=== PATIENT | male | born 1965 | race Caucasian/White ===

== ENCOUNTER 2016-12-29 10:42 | Emergency (ER) | payer MEDICAID ==
[2016-12-29] MEDS ORDERED: TORAdol 30 mg Injection IV ONE (11:13)
[2016-12-29] MEDS ORDERED: Zofran 4 MG/2 ML VIAL IV ONE (11:13)
[2016-12-29] MEDS ORDERED: Sodium Chloride 0.9% 1000 ML 1,000 ML IV SCH (11:15)
[2016-12-29] MEDS ORDERED: TORAdol 30 mg Injection ONE (11:20)
[2016-12-29] MEDS ORDERED: Sodium Chloride 0.9% 1000 ML 1,000 ML ONE (11:20)
[2016-12-29] MEDS ORDERED: Zofran 4 MG/2 ML VIAL ONE (11:20)
--- NOTE | 2016-12-29 11:22 | ERPHSYRPT ---
- History of Present Illness Time Seen by Provider: 12/29/16 10:56 Historian: patient Exam Limitations: no limitations Patient Subjective Stated Complaint: onset left lower belly pain and left flank pain. hx kidney stones. n/v today. symptoms for one week Triage Nursing Assessment: ambulated to room per self holding left lower back. skin w/d, color normal. states has had vomiting this am. Physician History: onset left flank pain now moved to front; acts like kidney stone he has has in past; last stone was a year ago; now with nausea and vomiting; no hematuria; no fever or chills; no dysuria; normal BM today; pain LUQ but not tender; Timing/Duration: today (worse with N&V), day(s) (3 onset), intermittent Activities at Onset: none Quality: aching, stabbing Abdominal Pain Onset Location: flank (left) Pain Radiation: LUQ Severity of Pain-Max: severe Severity of Pain-Current: severe Modifying Factors: Improves With: nothing Associated Symptoms: back, nausea, vomiting Previous symptoms: same symptoms as today Allergies/Adverse Reactions: No Known Drug Allergies Allergy (Verified 12/29/16 11:07) Home Medications: Hydrocodone/APAP 10/325 mg [[place] 10/325 MG Tablet] 7.5 mg PO Q6H PRN PRN 01/20/15 [History] Hx Tetanus, Diphtheria Vaccination/Date Given: No Hx Influenza Vaccination/Date Given: Yes Hx Pneumococcal Vaccination/Date Given: No - Review of Systems Constitutional: No Symptoms Eyes: No Symptoms Ears, Nose, & Throat: No Symptoms Respiratory: No Cough, No Dyspnea, No Wheezing Cardiac: No Chest Pain, No Palpitations, No Syncope Abdominal/Gastrointestinal: Abdominal Pain, Nausea, Vomiting, No Diarrhea, No Constipation, No Hematemesis, No Hematochezia, No Melena Genitourinary Symptoms: Flank Pain (left), No Dysuria, No Frequency, No Hematuria, No Incontinence, No Testicle Pain Musculoskeletal: No Symptoms Skin: No Symptoms Neurological: No Symptoms Psychological: No Symptoms Endocrine: No Symptoms Hematologic/Lymphatic: No Symptoms Immunological/Allergic: No Symptoms - Past Medical History Pertinent Past Medical History: Yes Neurological History: No Pertinent History ENT History: No Pertinent History Cardiac History: Aneurysm Respiratory History: No Pertinent History Endocrine Medical History: Diabetes Type II Musculoskeletal History: No Pertinent History GI Medical History: No Pertinent History, Pancreatitis History: Other Psycho-Social History: Depression Male Reproductive Disorders: No Pertinent History Other Medical History: AORTIC ANEURYSM. kidney stones - Past Surgical History Past Surgical History: Yes Neuro Surgical History: No Pertinent History Cardiac: Vascular Surgery Respiratory: No Pertinent History Gastrointestinal: No Pertinent History Genitourinary: Other Musculoskeletal: No Pertinent History Male Surgical History: No Pertinent History Other Surgical History: KIDNEY STONES REMOVED, - Social History Smoking Status: Current every day smoker How long have you smoked: 7 Exposure to second hand smoke: Yes Alcohol Use: Socially Drug Use: marijuana Patient Lives Alone: Yes Significant Family History: no pertinent family hx - Nursing Vital Signs Nursing Vital Signs: Initial Vital Signs Temperature 97.5 F Temperature Source Oral Pulse Rate 93 Respiratory Rate 16 Blood Pressure [Right Arm] 139/88 Pain Intensity 9 - Physical Exam General Appearance: severe distress (left flank and abd pain wiht N&V), alert, thin Eye Exam: PERRL/EOMI, eyes nml inspection, No photophobia Ears, Nose, Throat Exam: normal ENT inspection, TMs normal, pharynx normal, moist mucous membranes Neck Exam: normal inspection, non-tender, supple, full range of motion, No JVD Respiratory Exam: normal breath sounds, lungs clear, airway intact, No chest tenderness, No respiratory distress Cardiovascular Exam: regular rate/rhythm, normal heart sounds, normal peripheral pulses, capillary refill <2 sec, No murmur Gastrointestinal/Abdomen Exam: soft, normal bowel sounds, No tenderness, No distention, No mass, No guarding, No pulsatile mass, No rebound, No organomegaly Male Genitalia Exam: normal genitalia, No hernia, No testicular tenderness Rectal Exam: deferred Back Exam: normal inspection, normal range of motion, No CVA tenderness, No vertebral tenderness, No rash Extremity Exam: normal inspection, normal range of motion, No pelvis stable, No hayde's sign Neurologic Exam: alert, oriented x 3, cooperative, product 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 II-XII nml as tested, normal mood/affect, nml cerebellar function, nml station & gait Skin Exam: normal color, warm, dry, No rash SpO2 Interpretation: normal SpO2: 99 Oxygen Delivery: Room Air - Course Nursing assessment & vital signs reviewed: Yes - CT Exams Abdomen/Pelvis CT Interpretation: Tele-radiologist Report, Other (3mm stone left mid ureter withour hydro; also noted stable AA dissection withour change 3.8 cm) Ordered Tests: Active Orders 24 hr Category Date Time Status IV Insertion STAT Care 12/29/16 11:13 Active Strain Urine .as ordered Care 12/29/16 11:13 Active ABDOMEN AND PELVIS W/0 CONTRAS [CT] Stat Exams 12/29/16 11:24 Taken BMP Stat Lab 12/29/16 11:24 Completed CBC W DIFF Stat Lab 12/29/16 11:24 Completed UA W/ MICROSCOPIC Stat Lab 12/29/16 11:24 Completed Medication Summary Generic Name Dose Route Start Last Admin Trade Name Freq PRN Reason Stop Dose Admin Sodium Chloride 1,000 mls @ 100 mls/hr 12/29/16 11:15 12/29/16 11:23 Sodium Chloride 0.9% 1000 Ml IV 01/28/17 11:14 100 mls/hr .Q10H ISABEL Administration Discontinued Medications Generic Name Dose Route Start Last Admin Trade Name Freq PRN Reason Stop Dose Admin Ketorolac Tromethamine 30 mg 12/29/16 11:13 12/29/16 11:23 Toradol 30 Mg Injection IV 12/29/16 11:14 30 mg STAT ONE Administration Ketorolac Tromethamine Confirm 12/29/16 11:20 Toradol 30 Mg Injection Administered 12/29/16 11:21 Dose 30 mg .ROUTE .STK-MED ONE Ondansetron HCl 4 mg 12/29/16 11:13 12/29/16 11:23 Zofran 4 Mg/2 Ml Vial IV 12/29/16 11:14 4 mg STAT ONE Administration Ondansetron HCl Confirm 12/29/16 11:20 Zofran 4 Mg/2 Ml Vial Administered 12/29/16 11:21 Dose 4 mg .ROUTE .STK-MED ONE Lab/Rad Data: Laboratory Result Diagrams 12/29/16 11:24 12/29/16 11:24 Laboratory Results 12/29/16 12/29/16 12/29/16 Range/Units 11:24 11:24 11:24 WBC 8.3 (4.0-10.5) K/mm3 RBC 5.50 (4.1-5.6) M/mm3 Hgb 16.1 (12.5-18.0) gm/dl Hct 47.9 (42-50) % MCV 87.1 (78-100) fl MCH 29.3 (26-32) pg MCHC 33.6 (32-36) g/dl RDW 13.8 (11.5-14.0) % Plt Count 325 (150-450) K/mm3 MPV 10.6 H (6-9.5) fl Gran % 62.7 (36.0-66.0) % Lymphocytes % 24.4 (24.0-44.0) % Monocytes % 7.5 (0.0-12.0) % Eosinophils % 5.0 (0.00-5.0) % Basophils % 0.4 (0.0-0.4) % Basophils # 0.03 (0-0.4) Sodium 137 (136-145) mEq/L Potassium 3.8 (3.5-5.1) mEq/L Chloride 103 (98-107) mEq/L Carbon Dioxide 23.2 (21-32) mEq/L Anion Gap 14.8 (5-15) MEQ/L BUN 15 (9-20) mg/dL Creatinine 1.29 (0.55-1.30) mg/dl Estimated GFR > 60 ML/MIN Glucose 144 H (70-110) MG/DL Calcium 9.6 (8.5-10.1) mg/dL Ur Collection Type VOID Urine Color YELLOW (YELLOW) Urine Appearance CLEAR (CLEAR) Urine pH 6.0 (5-6) Ur Specific [place] 1.015 (1.005-1.025) Urine Protein NEGATIVE (Negative) Urine Glucose (UA) NEGATIVE (NEGATIVE) mg/dL Urine Ketones NEGATIVE (NEGATIVE) Urine Nitrite NEGATIVE (NEGATIVE) Urine Bilirubin NEGATIVE (NEGATIVE) Urine Urobilinogen 0.2 (0-1) mg/dL Urine WBC (Auto) TRACE (NEGATIVE) Urine RBC (Auto) TRACE HEMOLYZED (0-5) Adal/ul Urine Microscopic RBC 0-2 (0-2) /HPF Urine Microscopic WBC 15-25 (0-5) /HPF Ur Epithelial Cells RARE (FEW) /HPF Urine Bacteria FEW (NEGATIVE) /HPF Urine Yeast FEW (NEGATIVE) /HPF Specimen Received 12/29/16 2052 reviewed - Progress Progress: improved (after meds ), re-examined (after CT and meds) Progress Note: 12/29/16 11:23 IV started, labs drawn and pending; UA pending; FAMILY SERVICES ASSISTANT pending, will medicate and recheck 12/29/16 11:36 patient medicated and to CT; CBC wnl; other labs pending; will recheck post CT 12/29/16 12:[address]- pain resolved; N&V resolved; CT results reviewed and small new 3mm stone mid left ureter; no change in AA ; Clinically abdomen non-tender; no pulsatile masses; good femoral pulses as well as distal; abdomen non-tender; labs neg except for blood in urine and infection; will treat and d/c to follow up with lmd; instructions given and treatment plan discussed Counseled pt/family regarding: lab results, diagnosis, need for follow-up, rad results, smoking cessation - Departure Time of Disposition: 12:13 Departure Disposition: Home Clinical Impression: Ureteral calculus, left, Abdominal pain, UTI (lower urinary tract infection), History of aortic dissection Condition: Stable Critical Care Time: No Referrals: FLASH PICKETT MD [Primary Care Provider] - Instructions: Kidney Stones Additional Instructions: clear fluids 12 hours; strain urine; follow up lmd /urologist recheck Follow-up with family doctor as directed. Call for appointment. Return if any problems. If you smoke please stop. Call or follow up with your family doctor for assistance if you need it to stop. Please wear your seatbelt when driving. Have a nice day. Thank you for allowing us to participate in your care today. :o) Dr Willie Pino Prescriptions: Hydrocodone/Ibuprofen [Vicoprofen 200-7.5 mg Tab] 1 each PO Q8HPRN PRN #10 tablet PRN Reason: Pain
[2016-12-29 11:32] LABS: BASOPHIL % 0.4 % (0.0-0.4); Granulocytes % 62.7 % (36.0-66.0); Lymphocytes % 24.4 % (24.0-44.0); Mean Cell Volume 87.1 fl (78-100); Mean Corpuscular Hemoglobin 29.3 pg (26-32); Mean Platelet Volume 10.6 fl (6-9.5); Monocytes % 7.5 % (0.0-12.0); Platelet Count 325 K/mm3 (150-450); Red Cell Distribution Width 13.8 % (11.5-14.0); White Blood Count 8.3 K/mm3 (4.0-10.5)
[2016-12-29 11:45] LABS: ANION GAP 14.8 MEQ/L (5-15); BLOOD UREA NITROGEN 15 mg/dL (9-20); CHLORIDE 103 mEq/L (98-107); Carbon Dioxide 23.2 mEq/L (21-32); Glucose 144 MG/DL (70-110); Potassium 3.8 mEq/L (3.5-5.1); SODIUM 137 mEq/L (136-145)
[2016-12-29 11:52] LABS: Collection Type VOID
[2016-12-29 11:53] LABS: Bacteria FEW /HPF (NEGATIVE); COMPLETE URINE MICROSCOPIC? YES; Epithelial Cells RARE /HPF (FEW); WBC 15-25 /HPF (0-5); Yeast FEW /HPF (NEGATIVE)
--- NOTE | 2016-12-29 12:12 | XRAY ---
Indication: Multiple contiguous axial images obtained through the abdomen and pelvis without contrast using renal stone protocol. Comparison: Contrast exam January 09, 2016. Lung bases again demonstrates minimal bibasilar dependent atelectasis/scarring. Heart is not enlarged. New 3 mm left mid to distal ureteral calculus, approximately S1 level. Proximal left ureter is not abnormally distended. Stable additional left renal calculi and nonobstructing right renal micro-calculi. 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 Maximum aortic diameter again 3.8 cm. No free fluid or evidence for active hemorrhage. Stable tiny right inferior hepatic cyst and splenomegaly today measuring 13.4 cm in greatest axial dimension. Noncontrasted stomach and bowel loops appear nonobstructed with moderate scattered colonic fecal debris. Again minimal sigmoid diverticulosis without diverticulitis. Normal appendix. No free fluid/air. Remaining liver, gallbladder, pancreas, spleen, adrenal glands, kidneys, ureters, and bladder appear unremarkable for noncontrast exam. Osseous structures intact. Impression: 1. New 3 mm left mid to distal ureteral calculus without hydronephrosis or hydroureter. Again additional bilateral renal micro-calculi. 2. 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 3. Again fecal stasis without obstruction. 4. Stable incidental splenomegaly, tiny hepatic cyst, and sigmoid diverticulosis. CTDI 21.29
[2016-12-29 12:15] VITALS: O2SAT 99
[2016-12-29 12:39] VITALS: BP 132/71; PULSE 70
== END 2016-12-29 12:39 | disposition home or self-care (01) ==
LOC: ED 10:42
DX: N20.1 Calculus of ureter (principal); R10.32 Left lower quadrant pain
CPT/HCPCS: 36000; 36415; 74176; 80048; 81000; 85025; 96360; 96361; 96374; 96375; 99284; J1885; J2405

== ENCOUNTER 2017-01-23 07:31 | Observation (INO) | payer OTHER ==
--- NOTE | 2017-01-23 07:47 | ERPHSYRPT ---
- History of Present Illness Time Seen by Provider: 01/23/17 07:38 Historian: patient Exam Limitations: no limitations Physician History: Pt c/o of worsening cough for 2 weeks. Timing/Duration: week(s) (2) Activities at Onset: none Quality: sharpness (hurts to cough) Location: central Chest Pain Radiation: no radiation Severity of Pain-Max: mild Severity of Pain-Current: mild Modifying Factors: Improves With: nothing Associated Symptoms: cough, hurts to breathe Nitro Today/Relief: no nitro taken today Aspirin Treatment Today: no aspirin today Allergies/Adverse Reactions: No Known Drug Allergies Allergy (Verified 01/23/17 11:21) Hx Tetanus, Diphtheria Vaccination/Date Given: No Hx Influenza Vaccination/Date Given: Yes Hx Pneumococcal Vaccination/Date Given: No - Review of Systems Constitutional: No Fever, No Chills Eyes: No Symptoms Ears, Nose, & Throat: No Symptoms Respiratory: Cough Cardiac: No Chest Pain, No Edema, No Syncope Abdominal/Gastrointestinal: No Abdominal Pain, No Nausea, No Vomiting, No Diarrhea Genitourinary Symptoms: No Dysuria Musculoskeletal: No Back Pain, No Neck Pain Skin: No Rash Neurological: No Dizziness, No Focal Weakness, No Sensory Changes Psychological: No Symptoms Endocrine: No Symptoms Hematologic/Lymphatic: No Symptoms Immunological/Allergic: No Symptoms All Other Systems: Reviewed and Negative - Past Medical History Pertinent Past Medical History: Yes Neurological History: No Pertinent History ENT History: No Pertinent History Cardiac History: Aneurysm Respiratory History: No Pertinent History Endocrine Medical History: Diabetes Type II Musculoskeletal History: No Pertinent History GI Medical History: No Pertinent History, Pancreatitis History: Other Psycho-Social History: Depression Male Reproductive Disorders: No Pertinent History Other Medical History: AORTIC ANEURYSM. kidney stones - Past Surgical History Past Surgical History: Yes Neuro Surgical History: No Pertinent History Cardiac: Vascular Surgery Respiratory: No Pertinent History Gastrointestinal: No Pertinent History Genitourinary: Other Musculoskeletal: No Pertinent History Male Surgical History: No Pertinent History Other Surgical History: KIDNEY STONES REMOVED, - Social History Smoking Status: Current every day smoker How long have you smoked: 7 Exposure to second hand smoke: Yes Alcohol Use: Socially Drug Use: marijuana Patient Lives Alone: Yes Significant Family History: no pertinent family hx - Nursing Vital Signs Nursing Vital Signs: Initial Vital Signs Temperature 97.4 F Temperature Source Oral Pulse Rate [Left Radial] 100 Pulse Rate 102 Respiratory Rate 19 Blood Pressure [Left Arm] 168/84 Pain Intensity 5 - Physical Exam General Appearance: no apparent distress, alert Eye Exam: PERRL/EOMI, eyes nml inspection Ears, Nose, Throat Exam: normal ENT inspection, moist mucous membranes Neck Exam: normal inspection, non-tender, supple, full range of motion Respiratory Exam: rhonchi Cardiovascular Exam: regular rate/rhythm, normal heart sounds Gastrointestinal/Abdomen Exam: soft, No tenderness, No mass Rectal Exam: not done Back Exam: normal inspection, No CVA tenderness, No vertebral tenderness Extremity Exam: normal inspection, normal range of motion Neurologic Exam: alert, oriented x 3, cooperative, normal mood/affect, sensation nml, No motor deficits Skin Exam: normal color, warm, dry SpO2 Interpretation: normal - Radiology Exams Chest X-ray Interpretation: Teleradiologist Report, Other (mild interstial congestion per dr Morel.) Ordered Tests: Medication Summary Discontinued Medications Generic Name Dose Route Start Last Admin Trade Name Freq PRN Reason Stop Dose Admin Acetaminophen 650 mg 01/23/17 10:34 01/23/17 10:34 Tylenol 325 Mg PO 01/23/17 10:35 650 mg STAT STA Administration Acetaminophen Confirm 01/23/17 10:33 Tylenol 325 Mg Administered 01/23/17 10:34 Dose 650 mg .ROUTE .STK-MED ONE Acetaminophen 650 mg 01/23/17 11:23 01/23/17 21:34 Tylenol 325 Mg PO 02/22/17 11:22 650 mg Q4H PRN PRN Administration PAIN AND/OR FEVER Albuterol/Ipratropium 3 ml 01/23/17 07:56 01/23/17 08:25 Duoneb 0.5-3 Mg/3 Ml Neb IH 01/23/17 07:57 3 ml STAT ONE Administration Albuterol/Ipratropium Confirm 01/23/17 08:24 Duoneb 0.5-3 Mg/3 Ml Neb Administered 01/23/17 08:25 Dose 3 ml IH .STK-MED ONE Aspirin 324 mg 01/23/17 09:04 01/23/17 09:10 Baby Aspirin 81 Mg Chew PO 01/23/17 09:05 324 mg STAT ONE Administration Aspirin Confirm 01/23/17 09:07 Baby Aspirin 81 Mg Chew Administered 01/23/17 09:08 Dose 324 mg .ROUTE .STK-MED ONE Aspirin 81 mg 01/24/17 10:00 Ecotrin 81 Mg PO 02/23/17 09:59 DAILY ISABEL Enoxaparin Sodium 40 mg 01/24/17 10:00 Enoxaparin Sodium SQ 02/23/17 09:59 DAILY ISABEL Enoxaparin Sodium 40 mg 01/23/17 19:00 01/23/17 18:55 Enoxaparin Sodium SQ 01/23/17 19:01 40 mg 1XONLY ONE Administration Furosemide 40 mg 01/23/17 10:24 01/23/17 10:31 Lasix 40 Mg/4 Ml IV 01/23/17 10:25 40 mg STAT ONE Administration Furosemide Confirm 01/23/17 10:26 Lasix 40 Mg/4 Ml Administered 01/23/17 10:27 Dose 40 mg .ROUTE .STK-MED ONE Furosemide 40 mg 01/23/17 22:00 01/23/17 21:33 Lasix 40 Mg/4 Ml IV 02/22/17 21:59 40 mg Q12HT ISABEL Administration Sodium Chloride 1,000 mls @ 999 mls/hr 01/23/17 09:03 01/23/17 09:10 Sodium Chloride 0.9% 1000 Ml IV 01/23/17 10:03 999 mls/hr .Q1H1M STA Administration Sodium Chloride Confirm 01/23/17 09:07 Sodium Chloride 0.9% 1000 Ml Administered 01/23/17 09:08 Dose 1,000 mls @ ud .ROUTE .STK-MED ONE Ceftriaxone Sodium/Dextrose 1 g in 50 mls @ 100 mls/hr 01/23/17 10:25 10:33 Rocephin 1 Gm-D5w 50 Ml Bag IV 01/23/17 10:54 100 mls/hr STAT ONE Administration Ceftriaxone Sodium/Dextrose Confirm 01/23/17 10:33 Rocephin 1 Gm-D5w 50 Ml Bag Administered 01/23/17 10:34 Dose 1 g in 50 mls @ ud IV .STK-MED ONE Ceftriaxone Sodium/Dextrose 1 g in 50 mls @ 100 mls/hr 01/24/17 10:00 Rocephin 1 Gm-D5w 50 Ml Bag IV 02/23/17 09:59 Q24H10 ISABEL Ibuprofen 600 mg 01/23/17 18:40 01/23/17 18:54 Motrin 600 Mg PO 02/22/17 18:39 600 mg Q8HPRN PRN Administration MODERATE PAIN Ketorolac Tromethamine 30 mg 01/23/17 07:56 01/23/17 08:13 Toradol 30 Mg Injection IV 01/23/17 07:57 30 mg STAT ONE Administration Ketorolac Tromethamine Confirm 01/23/17 08:03 Toradol 30 Mg Injection Administered 01/23/17 08:04 Dose 30 mg .ROUTE .STK-MED ONE Methylprednisolone Sodium Succinate 125 mg 01/23/17 07:56 01/23/17 08:13 Solu-Medrol 125 Mg IV 01/23/17 07:57 125 mg STAT ONE Administration Methylprednisolone Sodium Succinate Confirm 01/23/17 08:04 Solu-Medrol 125 Mg Administered 01/23/17 08:05 Dose 125 mg .ROUTE .STK-MED ONE Metoprolol Tartrate 25 mg 01/23/17 22:00 01/23/17 18:55 Lopressor 25mg Tab PO 02/22/17 21:59 25 mg BID ISABEL Administration Metoprolol Tartrate 50 mg 01/24/17 01:04 01/24/17 01:06 Lopressor 25mg Tab PO 01/24/17 01:05 50 mg STAT ONE Administration Lab/Rad Data: Laboratory Result Diagrams 01/23/17 07:56 01/23/17 09:20 Laboratory Results 01/23/17 01/23/17 01/23/17 Range/Units 11:05 09:20 09:20 WBC (4.0-10.5) K/mm3 RBC (4.1-5.6) M/mm3 Hgb (12.5-18.0) gm/dl Hct (42-50) % MCV (78-100) fl MCH (26-32) pg MCHC (32-36) g/dl RDW (11.5-14.0) % Plt Count (150-450) K/mm3 MPV (6-9.5) fl Gran % (36.0-66.0) % Lymphocytes % (24.0-44.0) % Monocytes % (0.0-12.0) % Eosinophils % (0.00-5.0) % Basophils % (0.0-0.4) % Basophils # (0-0.4) Sodium (136-145) mEq/L Potassium 4.3 (3.5-5.1) mEq/L Chloride (98-107) mEq/L Carbon Dioxide (21-32) mEq/L Anion Gap (5-15) MEQ/L BUN (9-20) mg/dL Creatinine (0.55-1.30) mg/dl Estimated GFR ML/MIN Glucose (70-110) MG/DL Lactic Acid 2.1 H (0.4-2.0) Calcium (8.5-10.1) mg/dL Total Bilirubin (0.2-1.0) mg/dL AST (15-37) U/L ALT (12-78) U/L Alkaline Phosphatase (46-116) U/L Troponin I (0.000-0.056) ng/ml NT-Pro-B Natriuret Pep 91942 H (0-125) pg/ml Serum Total Protein (6.4-8.2) gm/dL Albumin (3.4-5.0) g/dL Influenza Type A Ag (NEGATIVE) Influenza Type B Ag (NEGATIVE) RSV (PCR) (Negative) 01/23/17 01/23/17 01/23/17 Range/Units 08:30 07:56 07:56 WBC (4.0-10.5) K/mm3 RBC (4.1-5.6) M/mm3 Hgb (12.5-18.0) gm/dl Hct (42-50) % MCV (78-100) fl MCH (26-32) pg MCHC (32-36) g/dl RDW (11.5-14.0) % Plt Count (150-450) K/mm3 MPV (6-9.5) fl Gran % (36.0-66.0) % Lymphocytes % (24.0-44.0) % Monocytes % (0.0-12.0) % Eosinophils % (0.00-5.0) % Basophils % (0.0-0.4) % Basophils # (0-0.4) Sodium 139 (136-145) mEq/L Potassium 5.3 H (3.5-5.1) mEq/L Chloride 105 (98-107) mEq/L Carbon Dioxide 24.2 (21-32) mEq/L Anion Gap 15.5 H (5-15) MEQ/L BUN 10 (9-20) mg/dL Creatinine 0.97 (0.55-1.30) mg/dl Estimated GFR > 60 ML/MIN Glucose 93 (70-110) MG/DL Lactic Acid 2.5 H (0.4-2.0) Calcium 8.7 (8.5-10.1) mg/dL Total Bilirubin 0.60 (0.2-1.0) mg/dL AST 124 H (15-37) U/L ALT 135 H (12-78) U/L Alkaline Phosphatase 186 H (46-116) U/L Troponin I 0.061 H* (0.000-0.056) ng/ml NT-Pro-B Natriuret Pep (0-125) pg/ml Serum Total Protein 7.3 (6.4-8.2) gm/dL Albumin 3.2 L (3.4-5.0) g/dL Influenza Type A Ag NEGATIVE (NEGATIVE) Influenza Type B Ag NEGATIVE (NEGATIVE) RSV (PCR) NEGATIVE (Negative) 01/23/17 Range/Units 07:56 WBC 9.7 (4.0-10.5) K/mm3 RBC 5.15 (4.1-5.6) M/mm3 Hgb 15.3 (12.5-18.0) gm/dl Hct 45.4 (42-50) % MCV 88.2 (78-100) fl MCH 29.7 (26-32) pg MCHC 33.7 (32-36) g/dl RDW 13.8 (11.5-14.0) % Plt Count 307 (150-450) K/mm3 MPV 10.8 H (6-9.5) fl Gran % 59.5 (36.0-66.0) % Lymphocytes % 27.9 (24.0-44.0) % Monocytes % 7.1 (0.0-12.0) % Eosinophils % 5.1 H (0.00-5.0) % Basophils % 0.4 (0.0-0.4) % Basophils # 0.04 (0-0.4) Sodium (136-145) mEq/L Potassium (3.5-5.1) mEq/L Chloride (98-107) mEq/L Carbon Dioxide (21-32) mEq/L Anion Gap (5-15) MEQ/L BUN (9-20) mg/dL Creatinine (0.55-1.30) mg/dl Estimated GFR ML/MIN Glucose (70-110) MG/DL Lactic Acid (0.4-2.0) Calcium (8.5-10.1) mg/dL Total Bilirubin (0.2-1.0) mg/dL AST (15-37) U/L ALT (12-78) U/L Alkaline Phosphatase (46-116) U/L Troponin I (0.000-0.056) ng/ml NT-Pro-B Natriuret Pep (0-125) pg/ml Serum Total Protein (6.4-8.2) gm/dL Albumin (3.4-5.0) g/dL Influenza Type A Ag (NEGATIVE) Influenza Type B Ag (NEGATIVE) RSV (PCR) (Negative) - Progress Discussed with Dr.: Corral - Departure Time of Disposition: 07:18 Departure Disposition: Observation Clinical Impression: Congestive heart failure Condition: Stable Critical Care Time: No
--- NOTE | 2017-01-23 07:55 | ERPHSYRPT ---
- History of Present Illness Time Seen by Provider: 01/23/17 07:48 Source: patient Exam Limitations: no limitations Patient Subjective Stated Complaint: PT HAS HAVE CHEST PAIN FOR ABOUT 3 DAYS. PT HAS SOB THAT KEEPS GETTING WORSE. C/O HEADACHE AND COUGH. Triage Nursing Assessment: PT IS ALERT X 3. PT IS SOB AT REST. RESPIRATIONS ARE DEEP AND FAST WITH A RR OF 30 AT THIS TIME. SKIN IS PINK WARM AND DRY. PT IS COUGHING AND WHEN DOING SO PT HOLDS HIS STOMACH AND CHEST AREA. PT IS NOW DANGLING ON THE SIDE OF BED. Physician History: The patient is a 51-year-old male who presents complaining of increasing cough, shortness of breath, and chest pain when breathing. The illness began approximately 2 weeks ago. It is much worse over the past 3 days. He states the chest pain is a pressure centrally and it hurts every time he breathes. The cough is productive but he doesn't know what color it is because he swallows. He denies fever. He no longer has some local doctor because he didn' t like him. He is a smoker. His past medical history significant for hypertension, pancreatitis, kidney stone, and aortic dissection. Timing/Duration: week(s) (2) Cough Quality/Degree: moderate, productive cough Possible Cause: occasional episodes, smoke exposure Modifying Factors: Improves With: nothing, coughing, deep breath. Worsens With : albuterol inhaler, albuterol nebulizer Associated Symptoms: cough, No fever Allergies/Adverse Reactions: No Known Drug Allergies Allergy (Verified 12/29/16 11:07) Home Medications: Hydrocodone/APAP 10/325 mg [Lisman 10/325 MG Tablet] 7.5 mg PO Q6H PRN PRN 01/20/15 [History] Hx Tetanus, Diphtheria Vaccination/Date Given: No Hx Influenza Vaccination/Date Given: Yes Hx Pneumococcal Vaccination/Date Given: No Immunizations Up to Date: Yes - Review of Systems Constitutional: No Fever, No Chills Eyes: No Symptoms Ears, Nose, & Throat: No Symptoms Respiratory: Cough, Dyspnea Cardiac: Chest Pain Abdominal/Gastrointestinal: No Abdominal Pain, No Nausea, No Vomiting, No Diarrhea Genitourinary Symptoms: No Dysuria Musculoskeletal: No Back Pain, No Neck Pain Skin: No Rash Neurological: No Dizziness, No Focal Weakness, No Sensory Changes Psychological: No Symptoms Endocrine: No Symptoms Hematologic/Lymphatic: No Symptoms Immunological/Allergic: No Symptoms All Other Systems: Reviewed and Negative - Past Medical History Pertinent Past Medical History: Yes Neurological History: No Pertinent History ENT History: No Pertinent History Cardiac History: Aneurysm Respiratory History: No Pertinent History Endocrine Medical History: Diabetes Type II Musculoskeletal History: No Pertinent History GI Medical History: No Pertinent History, Pancreatitis History: Other Psycho-Social History: Depression Male Reproductive Disorders: No Pertinent History Other Medical History: AORTIC ANEURYSM. kidney stones - Past Surgical History Past Surgical History: Yes Neuro Surgical History: No Pertinent History Cardiac: Vascular Surgery Respiratory: No Pertinent History Gastrointestinal: No Pertinent History Genitourinary: Other Musculoskeletal: No Pertinent History Male Surgical History: No Pertinent History Other Surgical History: KIDNEY STONES REMOVED, - Social History Smoking Status: Current every day smoker How long have you smoked: 7 Exposure to second hand smoke: Yes Alcohol Use: Socially Drug Use: marijuana Patient Lives Alone: Yes Significant Family History: no pertinent family hx - Nursing Vital Signs Nursing Vital Signs: Initial Vital Signs Temperature 97.4 F Temperature Source Oral Pulse Rate [] 100 Pulse Rate 102 Respiratory Rate 19 Blood Pressure [] 168/84 Pain Intensity 5 - Physical Exam General Appearance: mild distress Eye Exam: PERRL/EOMI, eyes nml inspection Ears, Nose, Throat Exam: normal ENT inspection, TMs normal, pharynx normal, moist mucous membranes Neck Exam: normal inspection, non-tender, supple, full range of motion Respiratory Exam: rhonchi Cardiovascular Exam: tachycardia Gastrointestinal/Abdomen Exam: soft, No tenderness Rectal Exam: not done Back Exam: normal inspection, No CVA tenderness, No vertebral tenderness Extremity Exam: normal inspection, normal range of motion Neurologic Exam: alert, oriented x 3, cooperative, normal mood/affect, sensation nml, No motor deficits Skin Exam: normal color, warm, dry, No rash Lymphatic Exam: No adenopathy SpO2 Interpretation: normal SpO2: 98 - Course EKG Interpreted by Me: RATE, Sinus Tach, NORMAL AXIS, NORMAL INTERVALS, NORMAL QRS - Radiology Exams Chest X-ray Interpretation: Teleradiologist Report, Other (new bilateral interstitial edema per Dr Morel.) Ordered Tests: Active Orders 24 hr Category Date Time Status EKG-ER Only STAT Care 01/23/17 07:56 Active IV Insertion STAT Care 01/23/17 07:56 Active CHEST 2 VIEWS (PA AND LAT) Stat Exams 01/23/17 07:57 Completed CBC W DIFF Stat Lab 01/23/17 07:56 Completed CMP Stat Lab 01/23/17 07:56 Completed Lactic Acid Stat Lab 01/23/17 08:30 Results NT PRO BNP Stat Lab 01/23/17 09:20 Completed Potassium (Lab Test) [Potassium] Stat Lab 01/23/17 09:20 Completed TROPONIN Stat Lab 01/23/17 07:56 Completed Respiratory Nebulizer STAT RT 01/23/17 07:59 Completed Medication Summary Discontinued Medications Generic Name Dose Route Start Last Admin Trade Name Freq PRN Reason Stop Dose Admin Albuterol/Ipratropium 3 ml 01/23/17 07:56 01/23/17 08:25 Duoneb 0.5-3 Mg/3 Ml Neb IH 01/23/17 07:57 3 ml STAT ONE Administration Albuterol/Ipratropium Confirm 01/23/17 08:24 Duoneb 0.5-3 Mg/3 Ml Neb Administered 01/23/17 08:25 Dose 3 ml IH .STK-MED ONE Aspirin 324 mg 01/23/17 09:04 01/23/17 09:10 Baby Aspirin 81 Mg Chew PO 01/23/17 09:05 324 mg STAT ONE Administration Aspirin Confirm 01/23/17 09:07 Baby Aspirin 81 Mg Chew Administered 01/23/17 09:08 Dose 324 mg .ROUTE .STK-MED ONE Sodium Chloride 1,000 mls @ 999 mls/hr 01/23/17 09:03 01/23/17 09:10 Sodium Chloride 0.9% 1000 Ml IV 01/23/17 10:03 999 mls/hr .Q1H1M STA Administration Sodium Chloride Confirm 01/23/17 09:07 Sodium Chloride 0.9% 1000 Ml Administered 01/23/17 09:08 Dose 1,000 mls @ ud .ROUTE .STK-MED ONE Ketorolac Tromethamine 30 mg 01/23/17 07:56 01/23/17 08:13 Toradol 30 Mg Injection IV 01/23/17 07:57 30 mg STAT ONE Administration Ketorolac Tromethamine Confirm 01/23/17 08:03 Toradol 30 Mg Injection Administered 01/23/17 08:04 Dose 30 mg .ROUTE .STK-MED ONE Methylprednisolone Sodium Succinate 125 mg 01/23/17 07:56 01/23/17 08:13 Solu-Medrol 125 Mg IV 01/23/17 07:57 125 mg STAT ONE Administration Methylprednisolone Sodium Succinate Confirm 01/23/17 08:04 Solu-Medrol 125 Mg Administered 01/23/17 08:05 Dose 125 mg .ROUTE .STK-MED ONE Lab/Rad Data: Laboratory Result Diagrams 01/23/17 07:56 01/23/17 09:20 Laboratory Results 01/23/17 01/23/17 01/23/17 Range/Units 09:20 09:20 08:30 WBC (4.0-10.5) K/mm3 RBC (4.1-5.6) M/mm3 Hgb (12.5-18.0) gm/dl Hct (42-50) % MCV (78-100) fl MCH (26-32) pg MCHC (32-36) g/dl RDW (11.5-14.0) % Plt Count (150-450) K/mm3 MPV (6-9.5) fl Gran % (36.0-66.0) % Lymphocytes % (24.0-44.0) % Monocytes % (0.0-12.0) % Eosinophils % (0.00-5.0) % Basophils % (0.0-0.4) % Basophils # (0-0.4) Sodium (136-145) mEq/L Potassium 4.3 (3.5-5.1) mEq/L Chloride (98-107) mEq/L Carbon Dioxide (21-32) mEq/L Anion Gap (5-15) MEQ/L BUN (9-20) mg/dL Creatinine (0.55-1.30) mg/dl Estimated GFR ML/MIN Glucose (70-110) MG/DL Lactic Acid 2.5 H (0.4-2.0) Calcium (8.5-10.1) mg/dL Total Bilirubin (0.2-1.0) mg/dL AST (15-37) U/L ALT (12-78) U/L Alkaline Phosphatase (46-116) U/L Troponin I (0.000-0.056) ng/ml NT-Pro-B Natriuret Pep 25918 H (0-125) pg/ml Serum Total Protein (6.4-8.2) gm/dL Albumin (3.4-5.0) g/dL Influenza Type A Ag (NEGATIVE) Influenza Type B Ag (NEGATIVE) RSV (PCR) (Negative) 01/23/17 01/23/17 01/23/17 Range/Units 07:56 07:56 07:56 WBC 9.7 (4.0-10.5) K/mm3 RBC 5.15 (4.1-5.6) M/mm3 Hgb 15.3 (12.5-18.0) gm/dl Hct 45.4 (42-50) % MCV 88.2 (78-100) fl MCH 29.7 (26-32) pg MCHC 33.7 (32-36) g/dl RDW 13.8 (11.5-14.0) % Plt Count 307 (150-450) K/mm3 MPV 10.8 H (6-9.5) fl Gran % 59.5 (36.0-66.0) % Lymphocytes % 27.9 (24.0-44.0) % Monocytes % 7.1 (0.0-12.0) % Eosinophils % 5.1 H (0.00-5.0) % Basophils % 0.4 (0.0-0.4) % Basophils # 0.04 (0-0.4) Sodium 139 (136-145) mEq/L Potassium 5.3 H (3.5-5.1) mEq/L Chloride 105 (98-107) mEq/L Carbon Dioxide 24.2 (21-32) mEq/L Anion Gap 15.5 H (5-15) MEQ/L BUN 10 (9-20) mg/dL Creatinine 0.97 (0.55-1.30) mg/dl Estimated GFR > 60 ML/MIN Glucose 93 (70-110) MG/DL Lactic Acid (0.4-2.0) Calcium 8.7 (8.5-10.1) mg/dL Total Bilirubin 0.60 (0.2-1.0) mg/dL AST 124 H (15-37) U/L ALT 135 H (12-78) U/L Alkaline Phosphatase 186 H (46-116) U/L Troponin I 0.061 H* (0.000-0.056) ng/ml NT-Pro-B Natriuret Pep (0-125) pg/ml Serum Total Protein 7.3 (6.4-8.2) gm/dL Albumin 3.2 L (3.4-5.0) g/dL Influenza Type A Ag NEGATIVE (NEGATIVE) Influenza Type B Ag NEGATIVE (NEGATIVE) RSV (PCR) NEGATIVE (Negative) - Progress Progress: unchanged Air Movement: good Blood Culture(s) Obtained: Yes Antibiotics given: Yes Discussed with : Ellis Will see patient in: hospital (observation) Counseled pt/family regarding: lab results, diagnosis, rad results - Departure Time of Disposition: 10:23 Departure Disposition: Home Clinical Impression: Congestive heart failure Condition: Stable Critical Care Time: No Instructions: Heart Failure
[2017-01-23] MEDS ORDERED: solu-MEDROL 125 MG IV ONE (07:56)
[2017-01-23] MEDS ORDERED: DUONEB 0.5-3 MG/3 ml Neb IH ONE ×2 (07:56→08:24)
[2017-01-23] MEDS ORDERED: TORAdol 30 mg Injection IV ONE (07:56)
[2017-01-23] MEDS ORDERED: TORAdol 30 mg Injection ONE (08:03)
[2017-01-23] MEDS ORDERED: solu-MEDROL 125 MG ONE (08:04)
[2017-01-23 08:14] LABS: BASOPHIL % 0.4 % (0.0-0.4); Eosinophil % 5.1 % (0.00-5.0); Granulocytes % 59.5 % (36.0-66.0); Lymphocytes % 27.9 % (24.0-44.0); Mean Cell Volume 88.2 fl (78-100); Mean Corpuscular Hemoglobin 29.7 pg (26-32); Mean Platelet Volume 10.8 fl (6-9.5); Monocytes % 7.1 % (0.0-12.0); Platelet Count 307 K/mm3 (150-450); Red Blood Count 5.15 M/mm3 (4.1-5.6); Red Cell Distribution Width 13.8 % (11.5-14.0); White Blood Count 9.7 K/mm3 (4.0-10.5)
[2017-01-23 08:40] LABS: Lactic Acid 2.5 (0.4-2.0)
[2017-01-23 08:49] LABS: ALBUMIN 3.2 g/dL (3.4-5.0); ALKALINE PHOSPHATASE 186 U/L (46-116); ANION GAP 15.5 MEQ/L (5-15); BLOOD UREA NITROGEN 10 mg/dL (9-20); CHLORIDE 105 mEq/L (98-107); Carbon Dioxide 24.2 mEq/L (21-32); Glucose 93 MG/DL (70-110); SGOT/AST 124 U/L (15-37); SGPT/ALT 135 U/L (12-78); SODIUM 139 mEq/L (136-145); Total Protein 7.3 gm/dL (6.4-8.2)
[2017-01-23 08:56] LABS: TROPONIN 0.061 ng/ml (0.000-0.056)
[2017-01-23] MEDS ORDERED: Sodium Chloride 0.9% 1000 ML 1,000 ML IV STA (09:03)
[2017-01-23] MEDS ORDERED: BABY ASPIRIN 81 MG CHEW PO ONE (09:04)
[2017-01-23] MEDS ORDERED: Sodium Chloride 0.9% 1000 ML 1,000 ML ONE (09:07)
[2017-01-23] MEDS ORDERED: BABY ASPIRIN 81 MG CHEW ONE (09:07)
--- NOTE | 2017-01-23 09:09 | XRAY ---
Indication: Sternal pain. Cough. Comparison: November 17, 2014. PA/lateral chest again hyperinflated with now mild bilateral interstitial edema. No infiltrate, consolidation, or large effusion. Heart is not enlarged. Vascularity normal. Descending aorta is slightly enlarged/tortuous with known aortic dissection. Bony thorax intact with again sternotomy wires. Impression: New bilateral interstitial edema without cardiomegaly or large effusion. Known thoracic aortic dissection.
[2017-01-23 09:10] LABS: Potassium 5.3 mEq/L (3.5-5.1)
[2017-01-23] MEDS ORDERED: Lasix 40 MG/4 ML IV ONE (10:24)
[2017-01-23] MEDS ORDERED: ROCEPHIN 1 Gm-D5w 50 ml Bag** 1 G/50 ML IVPB IV ONE ×2 (10:25→10:33)
[2017-01-23] MEDS ORDERED: Lasix 40 MG/4 ML ONE (10:26)
[2017-01-23] MEDS ORDERED: TYLENOL 325 MG ONE (10:33)
[2017-01-23] MEDS ORDERED: TYLENOL 325 MG PO STA (10:34)
[2017-01-23] MEDS: TYLENOL 325 MG PO PRN ×2 (14:21→21:34)
[2017-01-23] MEDS ORDERED: MOTRIN 600 MG PO PRN (18:40)
[2017-01-23] MEDS ORDERED: ENOXAPARIN SODIUM SQ ONE (19:00)
[2017-01-23] MEDS ORDERED: Lasix 40 MG/4 ML IV SCH (22:00)
[2017-01-23] MEDS ORDERED: Lopressor 25MG Tab PO SCH (22:00)
[2017-01-24] MEDS ORDERED: Lopressor 25MG Tab PO ONE (01:04)
[2017-01-24 05:25] LABS: Lactic Acid 2.8 (0.4-2.0)
[2017-01-24 05:29] LABS: Mean Cell Volume 86.7 fl (78-100); Mean Platelet Volume 10.1 fl (6-9.5); Platelet Count 369 K/mm3 (150-450); Red Cell Distribution Width 13.6 % (11.5-14.0); White Blood Count 21.3 K/mm3 (4.0-10.5)
[2017-01-24 06:00] VITALS: O2SAT 97
[2017-01-24 06:38] LABS: ANION GAP 13.4 MEQ/L (5-15); Carbon Dioxide 27.8 mEq/L (21-32)
[2017-01-24 06:44] LABS: TROPONIN 0.058 ng/ml (0.000-0.056)
[2017-01-24 07:49] VITALS: BP 136/79; PULSE 94
--- NOTE | 2017-01-24 09:21 | PCM.DCORD ---
- Discharge Discharge Date: 01/24/17 Disposition: Home, Self-Care Condition: Stable Prescriptions: New Potassium Chloride 10 Meq Tab* [Klor Con 10 MEQ] 10 meq PO DAILY #30 tab Furosemide 40 mg/4 ml [Lasix 40 MG/4 ML] 40 mg PO DAILY #30 tab Metoprolol Tartrate 25 mg [Lopressor 25MG Tab] 25 mg PO BID #60 tab Instructions: Heart Failure Additional Instructions: follow up with Dr. Janneth Pozo [employer]. Appointment scheduled. Follow up with: FLASH PICKETT MD [ACTIVE STAFF] -
[2017-01-24] MEDS ORDERED: ROCEPHIN 1 Gm-D5w 50 ml Bag** 1 G/50 ML IVPB IV SCH (10:00)
[2017-01-24] MEDS ORDERED: ENOXAPARIN SODIUM SQ SCH (10:00)
[2017-01-24] MEDS ORDERED: ECOTRIN 81 MG PO SCH (10:00)
[2017-01-24 10:54] LABS: Eosinophil 2 % (0.00-3.0); Total Cells Counted 100
[2017-01-24 10:55] LABS: Platelet Estimate NORMAL (NORMAL)
--- NOTE | 2017-01-25 08:31 | SSS ---
DISCHARGE DIAGNOSIS: 1. CONGESTIVE HEART FAILURE. 2. HISTORY OF CORONARY ARTERY DISEASE. 3. HISTORY OF PANCREATITIS. HISTORY OF PRESENT ILLNESS: The patient is a 51 y/o WM who presented to the Emergency Room. He reports a 2 week episode of having increasing shortness of breath. The patient does have a history of previously having an aortic repair done and possible coronary artery bypass grafting to the best of my ability to determine what the patient is describing. The patient is a service case to me. He has seen Dr. Barber in the past apparently a year ago. He does no routinely follow a physician. He reports that he was on metoprolol previously, but stopped it on his own. The patient also reports history of type 2 diabetes mellitus and kidney stones. HOME MEDICATIONS: He is on no usual home medications. He does apparently have Ferriday which he takes on a PRN basis the source of which I am not absolutely certain where he is getting them. ALLERGIES: HE HAS NKDA. PHYSICAL EXAMINATION: Reveals a well-nourished, well-developed, 51 y/o WM in no obvious distress. HEENT: Normocephalic and atraumatic. Pupils equal, round, and reactive to light. Extraocular movements intact. Oropharynx is pink and moist. NECK: Supple without lymphadenopathy, thyromegaly, or JVD. CHEST: Clear, but diminished. HEART: Regular rate and rhythm without significant murmurs, rubs, or gallops. There is a median sternotomy scar present. ABDOMEN: Soft, nontender, nondistended without hepatosplenomegaly or masses. EXTREMITIES: Without cyanosis or clubbing. There is 1+ edema noted. NEURO: The patient is A&O X 3. No focal deficits are noted. VITAL SIGNS: The patient's most recent vital signs showed his temperature to be 97.7, pulse 89, respiratory rate 16, BP 131/63, O2 saturation 97% on room air. LABORATORY DATA: Patient's laboratory studies reveal troponins that have ran from slightly elevated at 0.06 to 0.03 range on several measurements. The patient initially had a sugar of 192 nonfasting, BUN 24, and a creatinine of 1.45. His electrolytes were normal. His lactic acid was slightly elevated at 2.1. He had an essentially normal CBC. HOSPITAL COURSE: The patient did receive Solu-Medrol and fluids initially in the Emergency Room. After the NT Pro BNP came back, they reversed their decision and stopped the fluids and gave him Lasix which the patient did respond to. However, due to the Solu-Medrol infusion, his WBC fredy to 20,000 by the next morning. The patient was feeling good by the time I saw him and anxious to be released home. We added metoprolol 25 mg bid to his regimen as well as 40 mg of Lasix and 10 mEq of potassium once daily. We are attempting to get him an outpatient evaluation by warehouse person locally. He does still have pending presently an echocardiogram. Of note also on his labs, he had a chest x-ray that showed new bilateral interstitial edema without cardiomegaly or large effusion. The patient's influenza A/B and respiratory syncytial virus were negative. His NT Pro BNP level was noted to be 10,435.
--- NOTE | 2017-01-26 09:41 | ECHO ---
DATE: 01/24/17 A transthoracic echocardiograph examination with color Doppler study was done. INDICATION: Congestive heart failure, shortness of breath, hypertension. IMPRESSION: 1. GLOBAL LEFT VENTRICULAR HYPOKINESIA WITH ESTIMATED GLOBAL LEFT VENTRICULAR EJECTION FRACTION OF AROUND 30-35%. 2. MODERATE MITRAL REGURGITATION. 3. MODERATE AORTIC REGURGITATION. 4. MILD TRICUSPID REGURGITATION WITH RIGHT VENTRICULAR SYSTOLIC PRESSURE OF 48 MM OF MERCURY. 5. MILD PULMONIC INSUFFICIENCY. 6. LEFT ATRIAL ENLARGEMENT. 7. LEFT VENTRICULAR HYPERTROPHY. 8. MILDLY DILATED LEFT VENTRICLE. The left ventricle was visualized and demonstrated global type of hypokinesia with estimated global left ventricular ejection fraction between 30-35%. The left ventricle is mildly dilated. There is left ventricular hypertrophy. The mitral valve was seen and this has a low flow characteristic suggestive of low cardiac output. There is moderate mitral regurgitation. The left atrium is enlarged. The aortic valve is sclerotic. There is mild to moderate aortic regurgitation. Right-sided chambers are normal. There is mild tricuspid regurgitation with right ventricular systolic pressure of 48 mm Hg suggestive of mild to moderate pulmonary hypertension. There is also mild pulmonic insufficiency.
== END 2017-01-24 10:40 | disposition home or self-care (01) ==
LOC: ED 07:31 → MED SURG 11:10
PROVIDERS: ADMIT Family Medicine; ATTEND Family Medicine
DX: I50.9 Heart failure, unspecified (principal); I25.810 Atherosclerosis of coronary artery bypass graft(s) without angina pectoris; K86.1 Other chronic pancreatitis; E11.9 Type 2 diabetes mellitus without complications; Z87.442 Personal history of urinary calculi; I10 Essential (primary) hypertension
CPT/HCPCS: 36000; 36415; 71020; 80048; 80053; 83605; 83880; 84132; 84484; 85025; 87040; 87631; 93005; 93041; 93268; 93306; 94640; 94760; 96360; 96365; 96374; 96375; 99285; G0378; J0696; J1650; J1885; J1940; J2930; A9270-GY

== ENCOUNTER 2017-03-06 08:50 | Emergency (ER) | payer OTHER, MEDICAID ==
[2017-03-06 08:59] VITALS: BP 133/68; PULSE 67; O2SAT 98
[2017-03-06] MEDS ORDERED: GI COCKTAIL 60ML (Belladonn/Phenobarb/Lidoc PO ONE (09:02)
[2017-03-06] MEDS ORDERED: XYLOCAINE HCl Viscous ONE (09:03)
[2017-03-06] MEDS ORDERED: Carafate 1 GM PO ONE (09:03)
--- NOTE | 2017-03-06 09:09 | ERPHSYRPT ---
- History of Present Illness Time Seen by Provider: 03/06/17 08:52 Source: patient Exam Limitations: no limitations Patient Subjective Stated Complaint: PT REPORTS TAKING WIFES HEADACHE MEDICINE- UNKOWN MED-2 DAYS AGO-STATES THAT HE THINKS IT BURNED A HOLE IN HIS THROAT- DENIES BLOODY SHOW-DENIES COUGH-DENIES SOB-STATES IT HURTS WHEN HE SWALLOWS Triage Nursing Assessment: PT PINK WARM ET [id number] HOARSENESS NOTED-RESP EASY ET NONLABORED Physician History: patient has a sore throat; onset Sunday; Sunday took some of his 's LOPEZ meds that was in a powder form; pain now worse; hurts when he swallows but swallows ok; no difficutly breathing; no change in voice; no fever; no other acute problems; no known exposures; doesn't know name of wifes meds for LOPEZ; no N &V Timing/Duration: abrupt onset (Sunday), persistent Severity: moderate ENT Location: throat Prearrival Treatment: over the counter meds (no releife) Modifying Factors: Improves With: other (swallowing makes worse) Associated Symptoms: sore throat, No difficulty swallowing (just painful) Allergies/Adverse Reactions: No Known Drug Allergies Allergy (Verified 03/06/17 09:07) Home Medications: Furosemide 40 mg/4 ml [Lasix 40 MG/4 ML] 40 mg PO BID 03/06/17 [History] Losartan Potassium [Cozaar] 100 mg PO DAILY 03/06/17 [History] Metoprolol Tartrate 25 mg [Lopressor 25MG Tab] 50 mg PO BID 03/06/17 [ History] Hx Tetanus, Diphtheria Vaccination/Date Given: No Hx Influenza Vaccination/Date Given: Yes Hx Pneumococcal Vaccination/Date Given: No Immunizations Up to Date: Yes - Review of Systems Constitutional: No Symptoms Eyes: No Symptoms Ears, Nose, & Throat: Throat Pain, Painful Swallowing, No Ear Pain, No Tinnitus , No Nose Discharge, No Mouth Pain, No Mouth Swelling, No Throat Swelling, No Hoarse, No Snoring Respiratory: No Cough, No Dyspnea, No Wheezing Cardiac: No Chest Pain, No Palpitations, No Syncope Abdominal/Gastrointestinal: No Abdominal Pain, No Nausea, No Vomiting, No Diarrhea Genitourinary Symptoms: No Symptoms Musculoskeletal: No Symptoms Skin: No Symptoms Neurological: No Symptoms Psychological: No Symptoms Endocrine: No Symptoms Hematologic/Lymphatic: No Symptoms Immunological/Allergic: No Symptoms - Past Medical History Pertinent Past Medical History: Yes Neurological History: No Pertinent History ENT History: No Pertinent History Cardiac History: Aneurysm Respiratory History: No Pertinent History Endocrine Medical History: Diabetes Type II Musculoskeletal History: No Pertinent History GI Medical History: No Pertinent History, Pancreatitis History: Other Psycho-Social History: Depression Male Reproductive Disorders: No Pertinent History Other Medical History: AORTIC ANEURYSM. kidney stones - Past Surgical History Past Surgical History: Yes Neuro Surgical History: No Pertinent History Cardiac: Vascular Surgery Respiratory: No Pertinent History Gastrointestinal: No Pertinent History Genitourinary: Other Musculoskeletal: No Pertinent History Male Surgical History: No Pertinent History Other Surgical History: KIDNEY STONES REMOVED, - Social History Smoking Status: Current every day smoker How long have you smoked: 7 Exposure to second hand smoke: Yes Alcohol Use: Socially Drug Use: marijuana Patient Lives Alone: Yes Significant Family History: no pertinent family hx - Nursing Vital Signs Nursing Vital Signs: Initial Vital Signs Pulse Rate 67 03/06/17 08:54 Respiratory Rate 20 03/06/17 08:54 Blood Pressure 133/68 03/06/17 08:54 O2 Sat by Pulse Oximetry 98 03/06/17 08:54 Pain Scale Pain Intensity 10 - Physical Exam General Appearance: mild distress (sore throat), alert, anxiety, thin Eye Exam: bilateral eye: normal inspection, PERRL, EOMI Ear Exam: right ear: TM normal, left ear: other (slightly retracted left TM; hearing ok), bilateral ear: auricle normal, canal normal Nasal Exam: normal inspection, No discharge, No dried blood Throat Exam: normal, pharynx normal, moist mucus membranes, No excessive drooling, No foreign body, No pharynx swelling, No tongue swollen, No voice changes Neck Exam: normal inspection, non-tender, supple, full range of motion, trachea midline, No JVD, No thyromegaly Cardiovascular/Respiratory Exam: chest non-tender, normal breath sounds, regular rate/rhythm, heart sounds normal, no ecchymosis, no JVD, no M/R/G, no respiratory distress Abdominal Exam: non-tender, soft, no organomegaly Neurologic Exam: alert, oriented x 3, cooperative, bone drier II-XII nml as tested, normal mood/affect, nml cerebellar function, nml station & gait, sensation nml Skin Exam: normal color, warm, dry, No rash SpO2 Interpretation: normal SpO2: 98 Oxygen Delivery: Room Air - Course Nursing assessment & vital signs reviewed: Yes Ordered Tests: Active Orders 24 hr Category Date Time Status Re-Check Vital Signs STAT Care 03/06/17 09:02 Active Medication Summary Discontinued Medications Generic Name Dose Route Start Last Admin Trade Name Freq PRN Reason Stop Dose Admin Belladonna Alkaloids/Phenobarbital 60 ml 03/06/17 09:02 03/06/17 09:06 Gi Cocktail 60ml (Belladonn/Phenobarb/Lidoc* PO 03/06/17 09:03 60 ml STAT ONE Administration Lidocaine HCl Confirm 03/06/17 09:03 Xylocaine Hcl Viscous * Administered 03/06/17 09:04 Dose 20 ml .ROUTE .STK-MED ONE Sucralfate Confirm 03/06/17 09:03 Carafate 1 Gm Administered 03/06/17 09:04 Dose 1 g PO .STK-MED ONE - Progress Progress: improved (after meds), re-examined (after meds given) Progress Note: 03/06/17 09:10 will give patient a GI cocktail (Carafate susp + Visc Xylo) to relieve symptoms and recheck; no evidence of infection 03/06/17 09:11 03/06/17 09:46 rechecked and patient resting comfortably; good releif with meds; treatment plan and instructions given; Counseled pt/family regarding: diagnosis, need for follow-up, smoking cessation - Departure Time of Disposition: 09:47 Departure Disposition: Home Clinical Impression: Esophagitis due to drug Condition: Stable Critical Care Time: No Referrals: DOCTOR,NO FAMILY [Primary Care Provider] - Additional Instructions: clear liquid and soft diet; no carbonation or acid foods for 48-72 hours; yogurt Follow-up with family doctor as directed. Call for appointment. Return if any problems. If you smoke please stop. Call or follow up with your family doctor for assistance if you need it to stop. Please wear your seatbelt when driving. Have a nice day. Thank you for allowing us to participate in your care today. :o) Dr Willie Pino Prescriptions: Sucralfate 1000 mg/10 ml [Carafate SUSPENSION 1000 MG/10 ML] 15 mg PO ACHS #16 oz
== END 2017-03-06 09:54 | disposition home or self-care (01) ==
LOC: ED 08:50
DX: K20.9 Esophagitis, unspecified (principal); T50.905A Adverse effect of unspecified drugs, medicaments and biological substances, initial encounter
CPT/HCPCS: 99283; A9270-GY

== ENCOUNTER 2017-03-29 21:30 | Emergency (ER) | payer OTHER ==
--- NOTE | 2017-03-29 21:52 | ERPHSYRPT ---
- History of Present Illness Time Seen by Provider: 03/29/17 21:47 Source: patient Exam Limitations: no limitations Physician History: Pt. with sore throat for past 3 days. States some discomfort with swallowing, ? voice changes, dizziness, "sweaty," but denies any fever, cough, SOB, CP, congestion, no N/V/D. Recently had cardiac catherization and to have heart valve replacement next month. Denies any recent exposure to any illnesses. States denies taking any meds for symptoms. Timing/Duration: gradual onset, days (3) Severity: moderate ENT Location: throat Prearrival Treatment: no prearrival treatment Modifying Factors: Improves With: other (Swallowing makes symtpotms worse) Associated Symptoms: ear pain (L), chills, dizziness, sore throat, other (neck swollen), No fever, No change in hearing, No drooling, No headache, No jaw pain , No neck pain Allergies/Adverse Reactions: No Known Drug Allergies Allergy (Verified 03/29/17 22:02) Home Medications: Furosemide 40 mg/4 ml [Lasix 40 MG/4 ML] 40 mg PO BID 03/06/17 [History] Losartan Potassium [Cozaar] 100 mg PO DAILY 03/06/17 [History] Metoprolol Tartrate 25 mg [Lopressor 25MG Tab] 50 mg PO BID 03/06/17 [ History] Aspirin 81 mg PO DAILY 03/29/17 [History] Nicotine 21 mg [Nicoderm CQ 21 MG] 21 mg TD 03/29/17 [History] Polyethylene Glycol 3350 [Miralax] 17 gm PO DAILY 03/29/17 [History] Hx Tetanus, Diphtheria Vaccination/Date Given: No Hx Influenza Vaccination/Date Given: Yes Hx Pneumococcal Vaccination/Date Given: No - Past Medical History Pertinent Past Medical History: Yes Neurological History: No Pertinent History ENT History: No Pertinent History Cardiac History: Aneurysm, Hypertension Respiratory History: No Pertinent History Endocrine Medical History: Diabetes Type II Musculoskeletal History: No Pertinent History GI Medical History: No Pertinent History, Pancreatitis History: Other Psycho-Social History: Depression Male Reproductive Disorders: No Pertinent History Other Medical History: AORTIC ANEURYSM. kidney stones - Past Surgical History Past Surgical History: Yes Neuro Surgical History: No Pertinent History Cardiac: Vascular Surgery Respiratory: No Pertinent History Gastrointestinal: No Pertinent History Genitourinary: Other Musculoskeletal: No Pertinent History Male Surgical History: No Pertinent History Other Surgical History: KIDNEY STONES REMOVED, - Social History Smoking Status: Current every day smoker (1 pack per week. Wearing patch to try and quit smoking) How long have you smoked: 7 Exposure to second hand smoke: Yes Alcohol Use: Socially Drug Use: marijuana Patient Lives Alone: Yes Significant Family History: no pertinent family hx - Nursing Vital Signs Nursing Vital Signs: Initial Vital Signs Temperature 98.1 F 03/29/17 21:47 Pulse Rate 74 03/29/17 21:47 Respiratory Rate 20 03/29/17 21:47 Blood Pressure 173/74 03/29/17 21:47 O2 Sat by Pulse Oximetry 97 03/29/17 21:47 Pain Scale Pain Intensity 10 - Physical Exam General Appearance: no apparent distress, alert Eye Exam: bilateral eye: normal inspection, PERRL, EOMI Ear Exam: bilateral ear: auricle normal, canal normal, TM normal Nasal Exam: normal inspection Throat Exam: moist mucus membranes, pharynx swelling (L peritonsilar swelling/ erythema), pharynx tenderness, No tonsillar exudate Neck Exam: supple, tender lateral (Left with some swelling noted) Cardiovascular/Respiratory Exam: normal breath sounds, regular rate/rhythm Abdominal Exam: non-tender, soft Neurologic Exam: alert, oriented x 3, sensation nml, No motor deficits Skin Exam: normal color, warm, dry - Course Nursing assessment & vital signs reviewed: Yes - CT Exams Soft Tissue Neck CT Interpretation: Tele-radiologist Report, Other (No abscess seen) Ordered Tests: Active Orders 24 hr Category Date Time Status NECK WITH CONTRAST [CT] Stat Exams 03/29/17 22:03 Taken BMP Stat Lab 03/29/17 22:10 Completed CBC W DIFF Stat Lab 03/29/17 22:10 Completed CULTURE, THROAT Stat Lab 03/29/17 22:50 Received [place] Screen Stat Lab 03/29/17 22:10 Completed STREP SCREEN-BETA A Stat Lab 03/29/17 22:50 Completed Lab/Rad Data: Laboratory Result Diagrams 03/29/17 22:10 03/29/17 22:10 Laboratory Results 03/29/17 03/29/17 03/29/17 Range/Units 22:50 22:10 22:10 WBC (4.0-10.5) K/mm3 RBC (4.1-5.6) M/mm3 Hgb (12.5-18.0) gm/dl Hct (42-50) % MCV (78-100) fl MCH (26-32) pg MCHC (32-36) g/dl RDW (11.5-14.0) % Plt Count (150-450) K/mm3 MPV (6-9.5) fl Gran % (36.0-66.0) % Lymphocytes % (24.0-44.0) % Monocytes % (0.0-12.0) % Eosinophils % (0.00-5.0) % Basophils % (0.0-0.4) % Basophils # (0-0.4) Sodium 140 (136-145) mEq/L Potassium 4.1 (3.5-5.1) mEq/L Chloride 103 (98-107) mEq/L Carbon Dioxide 27.5 (21-32) mEq/L Anion Gap 13.8 (5-15) MEQ/L BUN 22 H (9-20) mg/dL Creatinine 1.47 H (0.55-1.30) mg/dl Estimated GFR 53 ML/MIN Glucose 100 (70-110) MG/DL Calcium 9.0 (8.5-10.1) mg/dL Monoscreen NEGATIVE (Negative) Streptococcus Screen NEGATIVE (Negative) 03/29/17 Range/Units 22:10 WBC 10.0 (4.0-10.5) K/mm3 RBC 4.95 (4.1-5.6) M/mm3 Hgb 14.6 (12.5-18.0) gm/dl Hct 43.2 (42-50) % MCV 87.3 (78-100) fl MCH 29.5 (26-32) pg MCHC 33.8 (32-36) g/dl RDW 13.4 (11.5-14.0) % Plt Count 302 (150-450) K/mm3 MPV 9.5 (6-9.5) fl Gran % 59.7 (36.0-66.0) % Lymphocytes % 26.0 (24.0-44.0) % Monocytes % 9.8 (0.0-12.0) % Eosinophils % 4.1 (0.00-5.0) % Basophils % 0.4 (0.0-0.4) % Basophils # 0.04 (0-0.4) Sodium (136-145) mEq/L Potassium (3.5-5.1) mEq/L Chloride (98-107) mEq/L Carbon Dioxide (21-32) mEq/L Anion Gap (5-15) MEQ/L BUN (9-20) mg/dL Creatinine (0.55-1.30) mg/dl Estimated GFR ML/MIN Glucose (70-110) MG/DL Calcium (8.5-10.1) mg/dL Monoscreen (Negative) Streptococcus Screen (Negative) - Progress Progress: improved Counseled pt/family regarding: lab results, diagnosis, rad results - Departure Time of Disposition: 23:54 Departure Disposition: Home Clinical Impression: Pharyngitis Condition: Stable Critical Care Time: No Referrals: DOCTOR,NO FAMILY [Primary Care Provider] - Instructions: Strep Throat, Viral Pharyngitis Additional Instructions: RX: PenVK May use throat lozenges, Chloraseptic spray for sore throat. Return for worse sore throat, swelling, difficulty swallowing/breathing or any problems. Prescriptions: Penicillin V Potassium 500 mg PO QID #40 tablet
[2017-03-29 22:23] LABS: BASOPHIL % 0.4 % (0.0-0.4); Eosinophil % 4.1 % (0.00-5.0); Granulocytes % 59.7 % (36.0-66.0); Mean Cell Volume 87.3 fl (78-100); Mean Corpuscular Hemoglobin 29.5 pg (26-32); Mean Platelet Volume 9.5 fl (6-9.5); Monocytes % 9.8 % (0.0-12.0); Platelet Count 302 K/mm3 (150-450); Red Blood Count 4.95 M/mm3 (4.1-5.6); Red Cell Distribution Width 13.4 % (11.5-14.0)
[2017-03-29 22:42] LABS: ANION GAP 13.8 MEQ/L (5-15); Carbon Dioxide 27.5 mEq/L (21-32); Potassium 4.1 mEq/L (3.5-5.1)
[2017-03-29] MEDS ORDERED: PEN-VEE K PO ONE (23:58)
[2017-03-30] MEDS ORDERED: PEN-VEE K ONE (00:03)
[2017-03-30 00:39] VITALS: BP 132/88; PULSE 74; O2SAT 98
--- NOTE | 2017-03-30 08:51 | XRAY ---
Indication: Left neck swelling. Multiple contiguous axial images obtained through the neck using 60 cc Isovue 370 contrast. Comparison: None There are few small subcentimeter cervical and submandibular lymph nodes bilaterally, none pathologically enlarged. No suspicious solid/cystic mass. Parotid and submandibular glands are bilaterally symmetric. Major arteries and veins are normal in course and caliber. Thyroid gland enhances homogeneously. Supra-and infraglottic airway are widely patent. Normal-appearing epiglottis. Visualized cervical spine intact. Base of the brain demonstrates partially visualized known old right cerebellar infarct. Lung apices clear. Impression: CT neck with contrast exam is negative. Comment: Preliminary interpretation was made by [facility]. No discrepancy. CT DI 24.52
== END 2017-03-30 00:38 | disposition home or self-care (01) ==
LOC: ED 21:30
DX: J02.9 Acute pharyngitis, unspecified (principal)
CPT/HCPCS: 36415; 70491; 80048; 85025; 86308; 87070; 87430; 99283; 99284; A9270-GY

== ENCOUNTER 2017-10-11 00:13 | Emergency (ER) | payer OTHER ==
[2017-10-11] MEDS ORDERED: TYLENOL EXTRA STRENGTH 500 MG PO STA (00:27)
[2017-10-11] MEDS ORDERED: TYLENOL EXTRA STRENGTH 500 MG ONE (00:30)
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
[2017-10-11 00:43] LABS: Hematocrit 42.5 % (42-50); Hemoglobin 14.5 gm/dl (12.5-18.0); Mean Cell Volume 86.9 fl (78-100); Mean Corpuscular Hemoglobin 29.7 pg (26-32); Mean Corpuscular Hgb Concent. 34.1 g/dl (32-36); Mean Platelet Volume 9.6 fl (6-9.5); Platelet Count 293 K/mm3 (150-450); Red Blood Count 4.89 M/mm3 (4.1-5.6); Red Cell Distribution Width 13.3 % (11.5-14.0); White Blood Count 8.6 K/mm3 (4.0-10.5)
[2017-10-11 01:04] LABS: INR 1.02 (0.8-3.0)
[2017-10-11 01:06] LABS: ALKALINE PHOSPHATASE 110 U/L (46-116); ANION GAP 15.9 MEQ/L (5-15); BLOOD UREA NITROGEN 20 mg/dL (9-20); CHLORIDE 103 mEq/L (98-107); Calcium 9.2 mg/dL (8.5-10.1); Carbon Dioxide 24.4 mEq/L (21-32); Creatinine 1 1.28 mg/dl (0.55-1.30); Glucose 122 MG/DL (70-110); PTT 31.3 SECONDS (24.1-36.1); Potassium 3.9 mEq/L (3.5-5.1); SGOT/AST 45 U/L (15-37); SGPT/ALT 35 U/L (12-78); SODIUM 139 mEq/L (136-145); Total Protein 8.1 gm/dL (6.4-8.2)
[2017-10-11 01:13] LABS: ETHYL ALCOHOL < 0.010 % (0.00-0.01)
[2017-10-11 01:29] LABS: Amphetamine,Urine POS. (NEGATIVE); Barbiturate,Urine NEG. (NEGATIVE); Benzodiazepine,Urine NEG. (NEGATIVE); Cocaine,Urine NEG. (NEGATIVE); Methadone,Urine NEG. (NEGATIVE); Opiate,Urine NEG. (NEGATIVE); PCP,Urine NEG. (NEGATIVE); THC,Urine NEG. (NEGATIVE)
[2017-10-11 01:47] VITALS: BP 171/94; PULSE 104; O2SAT 93
--- NOTE | 2017-10-11 11:31 | XRAY ---
Exam: CT of the head without IV contrast from 10/11/2017. CTDI: 50.00 Comparison: CT of the head without IV contrast from 03/02/2015. Indication: 51-year-old male with posttraumatic headache, fall, right frontal pain. Technique: Non-IV contrast axial images were obtained through the brain. Reconstructed coronal and sagittal images were created and reviewed. Findings: The patient's head is mildly rotated in the CT gantry. The ventricles appear of unremarkable size. No focal mass effect or midline shift is seen. No acute intracranial bleed or abnormal extra-axial fluid collection is seen. There is a small focus of encephalomalacia within the upper posterior right cerebellar hemisphere and the right posterior medial occipital region which are chronic and presumed be due to old infarcts. An acute territorial infarct is not seen. The remainder of the cortical sulci and basilar cisterns appears unremarkable. The calvarium of the skull reveals no fracture or other significant focal bone lesion. The visualized paranasal sinuses and mastoid air cells are essentially clear. Fairly extensive paranasal sinus disease on the prior study of 03/02/2015 has cleared. Impression: 1. No acute intracranial bleed or other acute intracranial findings are seen. 2. 2 small foci of chronic encephalomalacia within the upper right cerebellar hemisphere and posterior right occipital lobe remain unchanged and are presumably due to old infarcts.
--- NOTE | 2017-10-11 13:19 | XRAY ---
Exam: CT of the facial bones without IV contrast from 10/11/2017. CTDI: 59.47 Comparison: None. Indication: Patient fell striking right side of face, complains of right cheek pain. Technique: Non-IV contrast axial images were obtained through the face. Reconstructed coronal and sagittal images were created and reviewed. Findings: No acute facial bone fracture or posttraumatic air-fluid levels are seen within the paranasal sinuses. A minimal amount of secretions or mucosal thickening is seen within the posterior right lateral margin of the sphenoid sinus. The lower mouth is edentulous. I suspect some dental caries within the upper mouth. Consider consult with a dentist. Some thanh-orbital soft tissue swelling is seen on the right, most prominent just lateral to the right orbit. Again, no underlying fracture is seen. The globes of each eye appear unremarkable. The retro-orbital regions appear unremarkable. There appears to be a focal small right cerebellar infarct which is known to be old. Impression: 1. Mild right lateral periorbital soft tissue swelling is seen. No underlying facial bone fracture or traumatic paranasal sinus air-fluid levels are seen. 2. Other incidental findings, as discussed above.
== END 2017-10-11 01:51 | disposition home or self-care (01) ==
LOC: ED 00:13
DX: F15.10 Other stimulant abuse, uncomplicated (principal); S09.90XA Unspecified injury of head, initial encounter; Y04.0XXA Assault by unarmed brawl or fight, initial encounter; R42 Dizziness and giddiness; R51 Headache
CPT/HCPCS: 36415; 70450; 70486; 80053; 80307; 85027; 85610; 85730; 99282; G0480; A9270-GY

== ENCOUNTER 2017-12-13 10:22 | Emergency (ER) | payer OTHER ==
--- NOTE | 2017-12-13 10:45 | ERPHSYRPT ---
- History of Present Illness Time Seen by Provider: 12/13/17 10:42 Historian: patient Exam Limitations: no limitations Patient Subjective Stated Complaint: Wound check post cardiac bypass surgery on 12/03/2017. Triage Nursing Assessment: Pt presents to the ED for evaluation of wound on chest. Pt states he had open heart surgery on 12/03/2017. Pt states he is unsure of when he was to follow-up with transport technician. Pt states pain at wound site, ends approximated, no drainage noted. Skin PWD, no distress noted. Physician History: mild incisional pain of the chest after cabg on 12/03, no fever, no injury, no shortness of breath, no wound drainage or redness Aspirin Treatment Today: provided at home Allergies/Adverse Reactions: No Known Drug Allergies Allergy (Verified 03/29/17 22:02) Home Medications: Atorvastatin Calcium [Lipitor 20MG Tablet] 20 mg PO DAILY 12/13/17 [History] Clopidogrel Bisulfate [Clopidogrel] 75 mg PO DAILY 12/13/17 [History] Famotidine [Famotidine] 20 mg PO DAILY 12/13/17 [History] Furosemide [Furosemide] 40 mg PO DAILY 12/13/17 [History] Metoprolol Succinate 50 mg [Toprol Xl 50 MG] 50 mg PO DAILY 12/13/17 [ History] Potassium Chloride [Klor-Con M20] 20 meq PO DAILY 12/13/17 [History] Tramadol HCl 50 mg [Ultram 50 mg] 50 mg PO Q6HPRN PRN 12/13/17 [History] Hx Tetanus, Diphtheria Vaccination/Date Given: Yes Hx Influenza Vaccination/Date Given: Yes Hx Pneumococcal Vaccination/Date Given: Yes Immunizations Up to Date: Yes - Review of Systems Constitutional: No Fever Respiratory: No Dyspnea Cardiac: Chest Pain Abdominal/Gastrointestinal: No Abdominal Pain, No Vomiting Skin: No Rash Neurological: No Dizziness - Past Medical History Pertinent Past Medical History: Yes Neurological History: No Pertinent History ENT History: No Pertinent History Cardiac History: Aneurysm, Hypertension Respiratory History: No Pertinent History Endocrine Medical History: Diabetes Type II Musculoskeletal History: No Pertinent History GI Medical History: No Pertinent History, Pancreatitis History: Other Psycho-Social History: Depression Male Reproductive Disorders: No Pertinent History Other Medical History: AORTIC ANEURYSM. kidney stones - Past Surgical History Past Surgical History: Yes Neuro Surgical History: No Pertinent History Cardiac: CABG, Cardiac Catheterization, Vascular Surgery Respiratory: No Pertinent History Gastrointestinal: No Pertinent History Genitourinary: Other Musculoskeletal: No Pertinent History Male Surgical History: No Pertinent History Other Surgical History: KIDNEY STONES REMOVED, CABG 12/03/2017 - Social History Smoking Status: Former smoker How long have you smoked: 7 Exposure to second hand smoke: Yes Alcohol Use: Socially Drug Use: none Patient Lives Alone: No Significant Family History: no pertinent family hx - Nursing Vital Signs Nursing Vital Signs: Initial Vital Signs Temperature 97.7 F 12/13/17 10:29 Pulse Rate 87 12/13/17 10:29 Respiratory Rate 16 12/13/17 10:29 Blood Pressure 151/82 12/13/17 10:29 O2 Sat by Pulse Oximetry 100 12/13/17 10:29 Pain Scale Pain Intensity 8 - Physical Exam General Appearance: no apparent distress Ears, Nose, Throat Exam: moist mucous membranes Neck Exam: normal inspection Respiratory Exam: normal breath sounds Cardiovascular Exam: regular rate/rhythm, normal heart sounds Gastrointestinal/Abdomen Exam: soft, No tenderness Extremity Exam: normal range of motion Neurologic Exam: alert, oriented x 3, cooperative Skin Exam: other (left groin and sternal surgical wounds intact) SpO2 Interpretation: normal SpO2: 100 Oxygen Delivery: Room Air - Course Nursing assessment & vital signs reviewed: Yes EKG Interpreted by Me: Other (nsr 82 lat t wave abn seen 01/2017, no stemi) - Radiology Exams Chest X-ray Interpretation: Discussed w/ radiologist, Other (nap) - CT Exams Chest CT Interpretation: Discussed w/radiologist, Other (no PE) Ordered Tests: Active Orders 24 hr Category Date Time Status EKG-ER Only STAT Care 12/13/17 10:40 Active IV Insertion STAT Care 12/13/17 12:03 Active CHEST 1 VIEW (PORTABLE) Stat Exams 12/13/17 10:52 Completed CHEST WITH CONTRAST [CT] Stat Exams 12/13/17 11:54 Completed CBC W DIFF Stat Lab 12/13/17 10:47 Completed CMP Stat Lab 12/13/17 10:47 Completed D-DIMER QUANTITATION Stat Lab 12/13/17 10:47 Completed PROTIME WITH INR Stat Lab 12/13/17 10:47 Completed TROPONIN Q3H Lab 12/13/17 10:47 Completed TROPONIN Q3H Lab 12/13/17 13:45 Ordered TROPONIN Q3 Lab 12/13/17 16:45 Ordered TROPONIN Q3 Lab 12/13/17 19:45 Ordered TROPONIN Q3 Lab 12/13/17 22:45 Ordered Lab/Rad Data: Laboratory Result Diagrams 12/13/17 10:47 12/13/17 10:47 Laboratory Results 12/13/17 12/13/17 12/13/17 Range/Units 10:47 10:47 10:47 WBC (4.0-10.5) K/mm3 RBC (4.1-5.6) M/mm3 Hgb (12.5-18.0) gm/dl Hct (42-50) % MCV (78-100) fl MCH (26-32) pg MCHC (32-36) g/dl RDW (11.5-14.0) % Plt Count (150-450) K/mm3 MPV (6-9.5) fl Gran % (36.0-66.0) % Eos # (Auto) (0-0.5) Absolute Lymphs (auto) (1.0-4.6) Absolute Monos (auto) (0.0-1.3) Lymphocytes % (24.0-44.0) % Monocytes % (0.0-12.0) % Eosinophils % (0.00-5.0) % Basophils % (0.0-0.4) % Absolute Granulocytes (1.4-6.9) Basophils # (0-0.4) PT 12.7 (8.83-12.87) SECONDS INR 1.09 (0.8-3.0) D-Dimer 7606.23 H* (215-500) ng/mL Sodium 138 (137-145) mmol/L Potassium 4.1 (3.5-5.1) mmol/L Chloride 102 (98-107) mmol/L Carbon Dioxide 26 (22-30) mmol/L Anion Gap 13.7 (5-15) MEQ/L BUN 18 (9-20) mg/dL Creatinine 1.08 (0.66-1.25) mg/dL Estimated GFR > 60.0 ML/MIN Glucose 98 (74-106) mg/dL Calcium 8.9 (8.4-10.2) mg/dL Total Bilirubin 0.50 (0.2-1.3) mg/dL AST 23 (17-59) U/L ALT 23 (0-50) U/L Alkaline Phosphatase 232 H (38-126) U/L Troponin I 0.609 H* (0.000-0.034) ng/mL Serum Total Protein 7.1 (6.3-8.2) g/dL Albumin 3.6 (3.5-5.0) g/dL 12/13/17 Range/Units 10:47 WBC 11.1 H (4.0-10.5) K/mm3 RBC 3.28 L (4.1-5.6) M/mm3 Hgb 9.7 L (12.5-18.0) gm/dl Hct 29.8 L (42-50) % MCV 90.9 (78-100) fl MCH 29.5 (26-32) pg MCHC 32.6 (32-36) g/dl RDW 13.2 (11.5-14.0) % Plt Count 596 H (150-450) K/mm3 MPV 9.3 (6-9.5) fl Gran % 65.0 (36.0-66.0) % Eos # (Auto) 0.64 H (0-0.5) Absolute Lymphs (auto) 2.19 (1.0-4.6) Absolute Monos (auto) 0.98 (0.0-1.3) Lymphocytes % 19.8 L (24.0-44.0) % Monocytes % 8.9 (0.0-12.0) % Eosinophils % 5.8 H (0.00-5.0) % Basophils % 0.5 (0.0-0.4) % Absolute Granulocytes 7.18 H (1.4-6.9) Basophils # 0.06 (0-0.4) PT (8.83-12.87) SECONDS INR (0.8-3.0) D-Dimer (215-500) ng/mL Sodium (137-145) mmol/L Potassium (3.5-5.1) mmol/L Chloride (98-107) mmol/L Carbon Dioxide (22-30) mmol/L Anion Gap (5-15) MEQ/L BUN (9-20) mg/dL Creatinine (0.66-1.25) mg/dL Estimated GFR ML/MIN Glucose (74-106) mg/dL Calcium (8.4-10.2) mg/dL Total Bilirubin (0.2-1.3) mg/dL AST (17-59) U/L ALT (0-50) U/L Alkaline Phosphatase (38-126) U/L Troponin I (0.000-0.034) ng/mL Serum Total Protein (6.3-8.2) g/dL Albumin (3.5-5.0) g/dL - Progress Progress: re-examined Air Movement: good Progress Note: 12/13/17 13:33 d/w Liz PEARCE with leslie Rabago to discharge home and continue post op instructions Will see patient in: office Counseled pt/family regarding: lab results, diagnosis, need for follow-up, rad results - Departure Time of Disposition: 13:34 Departure Disposition: Home Clinical Impression: Post-op pain Condition: Stable Critical Care Time: No Referrals: FLASH PICKETT MD [Primary Care Provider] -
--- NOTE | 2017-12-13 11:01 | XRAY ---
Indication: Pain. Wound check following cardiac valvular replacement surgery. Comparison: January 23, 2017. Portable apical lordotic chest less inflated and remains clear. No pneumothorax. Heart is not enlarged and demonstrates interval cardiac valvular replacement surgery. Descending aorta remains tortuous/ectatic. Bony thorax intact. Impression: Nonacute underinflated chest with postsurgical changes.
[2017-12-13 11:20] LABS: INR 1.09 (0.8-3.0)
[2017-12-13 11:27] LABS: ALBUMIN 3.6 g/dL (3.5-5.0); ALKALINE PHOSPHATASE 232 U/L (38-126); ANION GAP 13.7 MEQ/L (5-15); BLOOD UREA NITROGEN 18 mg/dL (9-20); CHLORIDE 102 mmol/L (98-107); Calcium 8.9 mg/dL (8.4-10.2); Carbon Dioxide 26 mmol/L (22-30); Creatinine 1 1.08 mg/dL (0.66-1.25); Glucose 98 mg/dL (74-106); Potassium 4.1 mmol/L (3.5-5.1); SGOT/AST 23 U/L (17-59); SGPT/ALT 23 U/L (0-50); SODIUM 138 mmol/L (137-145); Total Protein 7.1 g/dL (6.3-8.2)
[2017-12-13 11:44] LABS: BASOPHIL % 0.5 % (0.0-0.4); Basophil (Absolute #) 0.06 (0-0.4); Eosinophil % 5.8 % (0.00-5.0); Eosinophil (Absolute #) 0.64 (0-0.5); Granulocyte Absolute (ANC) 7.18 (1.4-6.9); Hematocrit 29.8 % (42-50); Hemoglobin 9.7 gm/dl (12.5-18.0); Lymphocyte (Absolute #) 2.19 (1.0-4.6); Lymphocytes % 19.8 % (24.0-44.0); Mean Cell Volume 90.9 fl (78-100); Mean Corpuscular Hgb Concent. 32.6 g/dl (32-36); Mean Platelet Volume 9.3 fl (6-9.5); Monocyte (Absolute #) 0.98 (0.0-1.3); Monocytes % 8.9 % (0.0-12.0); Platelet Count 596 K/mm3 (150-450); Red Blood Count 3.28 M/mm3 (4.1-5.6); Red Cell Distribution Width 13.2 % (11.5-14.0); White Blood Count 11.1 K/mm3 (4.0-10.5)
[2017-12-13 11:47] LABS: Mean Corpuscular Hemoglobin 29.5 pg (26-32)
[2017-12-13 11:55] LABS: D-DIMER QUANTITATION 7606.23 ng/mL (215-500)
--- NOTE | 2017-12-13 13:02 | XRAY ---
Indication: Chest pain. Elevated d-dimer. Status post heart surgery one week ago. Multiple contiguous axial images obtained through the chest using 100 cc Isovue 370 contrast and PE protocol. Comparison: Conventional CT chest January 05, 2015. There is satisfactory opacification of the pulmonary arteries. However respiration artifact limits evaluation of the more distal lobar and segmental branches. No central pulmonary embolus. Heart is not enlarged and demonstrates interval aortic valve replacement surgery. No pathologic mediastinal/hilar lymphadenopathy. Stable aortic arch, descending aortic, and abdominal aortic dissection again involving the origin of the left subclavian artery. Examination of the lung parenchyma now demonstrates mild bilateral dependent atelectasis and right lower lobe subsegmental atelectasis/scarring. No suspicious pulmonary mass, infiltrate, or effusion. Bony thorax intact with new sternotomy hardware. Limited upper abdomen again demonstrate splenomegaly today measuring 14.5 cm. Impression: 1. Pulmonary embolus evaluation limited by respiration artifact. No central pulmonary embolus. 2. Status post aortic valve replacement surgery. No complications. 3. Stable thoracoabdominal aortic dissection. 4. Stable splenomegaly. CTDI 18.58
[2017-12-13 13:26] VITALS: BP 124/64; PULSE 75
[2017-12-13 13:35] VITALS: O2SAT 100
== END 2017-12-13 13:44 | disposition home or self-care (01) ==
LOC: ED 10:22
DX: G89.18 Other acute postprocedural pain (principal); Z95.1 Presence of aortocoronary bypass graft; Z79.899 Other long term (current) drug therapy
CPT/HCPCS: 36000; 36415; 71045; 71260; 80053; 84484; 85025; 85379; 85610; 93005; 99284

== ENCOUNTER 2018-09-09 11:52 | Emergency (ER) | payer OTHER ==
[2018-09-09] MEDS ORDERED: Sodium Chloride 0.9% 1000 ML 1,000 ML IV STA (13:01)
[2018-09-09] MEDS ORDERED: TORAdol 30 mg Injection IV ONE (13:01)
--- NOTE | 2018-09-09 13:08 | ERPHSYRPT ---
- History of Present Illness Time Seen by Provider: 09/09/18 12:57 Source: patient Exam Limitations: no limitations Patient Subjective Stated Complaint: Pt states "I think I have a kidney stone or infection. My left lower back has hurt for 3 days now and I also have a headache." Triage Nursing Assessment: Pt alert and oriented X 3, skin pwd Pt amblates with an upright steady gait, able to speak in clear full sentences. Pt in no apparent respiratory distress. Physician History: This is a 52-year-old white male with history of aneurysm, high blood pressure, depression, aortic aneurysm, kidney stones Patient arrives with complaint of left flank pain for 3 days he states he feels like he has a urinary tract infection he states he is worried he might have a kidney stone. Also states that he feels like he's had a headache for several days. Past medical history includes diabetes type 2, aneurysm, high blood pressure, pancreatitis, depression, aortic aneurysm, kidney stones. Past surgical history includes kidney stones, CABG. Timing/Duration: day(s) (3 days) Severity: moderate Modifying Factors: Improves With: nothing Associated Symptoms: headaches, other (left flank pain), No nausea, No vomiting , No abdominal pain, No shortness of breath, No heartburn, No diaphoresis, No cough, No chills, No chest pain, No fever, No loss of appetite, No malaise, No rash, No syncope, No seizure, No weakness Allergies/Adverse Reactions: No Known Drug Allergies Allergy (Verified 03/29/17 22:02) Home Medications: Metoprolol Succinate 50 mg [Toprol Xl 50 MG] 50 mg PO DAILY 12/13/17 [ History] Hx Tetanus, Diphtheria Vaccination/Date Given: No Hx Influenza Vaccination/Date Given: No Hx Pneumococcal Vaccination/Date Given: No Immunizations Up to Date: Yes - Review of Systems Constitutional: No Fever, No Chills Eyes: No Symptoms Ears, Nose, & Throat: No Symptoms Respiratory: No Cough, No Dyspnea Cardiac: No Chest Pain, No Edema, No Syncope Abdominal/Gastrointestinal: No Abdominal Pain, No Nausea, No Vomiting, No Diarrhea, No Constipation, No Hematemesis, No Hematochezia, No Melena, No Dysphagia, No Appetite Changes Genitourinary Symptoms: Flank Pain (left flank pain), No Dysuria, No Frequency, No Hematuria, No Hesitancy, No Incontinence, No Urgency, No Urinary Retention, No Testicle Pain, No Penile Discharge Musculoskeletal: Back Pain (left flank pain), No Neck Pain Skin: No Rash Neurological: No Dizziness, No Focal Weakness, No Sensory Changes Psychological: No Symptoms Endocrine: No Symptoms All Other Systems: Reviewed and Negative - Past Medical History Pertinent Past Medical History: Yes Neurological History: No Pertinent History ENT History: No Pertinent History Cardiac History: Aneurysm, Hypertension Respiratory History: No Pertinent History Endocrine Medical History: Diabetes Type II Musculoskeletal History: No Pertinent History GI Medical History: No Pertinent History, Pancreatitis History: Other Psycho-Social History: Depression Male Reproductive Disorders: No Pertinent History Other Medical History: AORTIC ANEURYSM. kidney stones - Past Surgical History Past Surgical History: Yes Neuro Surgical History: No Pertinent History Cardiac: CABG, Cardiac Catheterization, Vascular Surgery Respiratory: No Pertinent History Gastrointestinal: No Pertinent History Genitourinary: Other Musculoskeletal: No Pertinent History Male Surgical History: No Pertinent History Other Surgical History: KIDNEY STONES REMOVED, CABG 12/03/2017 - Social History Smoking Status: Current every day smoker How long have you smoked: 25 years Exposure to second hand smoke: Yes Alcohol Use: Socially Drug Use: none Patient Lives Alone: No Significant Family History: no pertinent family hx - Nursing Vital Signs Nursing Vital Signs: Initial Vital Signs Temperature 98.3 F 09/09/18 12:19 Pulse Rate 89 09/09/18 12:19 Respiratory Rate 18 09/09/18 12:19 Blood Pressure 167/98 09/09/18 12:19 O2 Sat by Pulse Oximetry 98 09/09/18 12:19 Pain Scale Pain Intensity 4 - Physical Exam General Appearance: mild distress, alert Eye Exam: PERRL/EOMI, eyes nml inspection Ears, Nose, Throat Exam: normal ENT inspection, TMs normal, pharynx normal, moist mucous membranes Neck Exam: normal inspection, non-tender, supple, full range of motion Respiratory Exam: normal breath sounds, lungs clear, No respiratory distress Cardiovascular Exam: regular rate/rhythm, normal heart sounds, normal peripheral pulses, capillary refill <2 sec Gastrointestinal/Abdomen Exam: soft, normal bowel sounds, No tenderness, No mass Back Exam: normal range of motion, CVA tenderness (left flank tenderness), No vertebral tenderness, No rash, No decreased range of motion, No muscle spasm, No point tenderness Extremity Exam: normal inspection, normal range of motion, pelvis stable Neurologic Exam: alert, oriented x 3, cooperative, 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 stable non occluding bilateral microcalculi and small right renal exophytic cyst. 2. incidental fecal stasis without obstruction. 3. stable splenomegaly and thoracoabdominal aortic dissection) Ordered Tests: Active Orders 24 hr Category Date Time Status IV Insertion STAT Care 09/09/18 13:01 Active ABDOMEN AND PELVIS W/0 CONTRAS [CT] Stat Exams 09/09/18 13:03 Completed AMYLASE Stat Lab 09/09/18 14:37 Completed CBC W DIFF Stat Lab 09/09/18 14:37 Completed CMP Stat Lab 09/09/18 14:37 Completed CULTURE,URINE Stat Lab 09/09/18 14:47 Received LIPASE Stat Lab 09/09/18 14:37 Completed UA W/RFX UR CULTURE Stat Lab 09/09/18 14:47 Completed Medication Summary Discontinued Medications Generic Name Dose Route Start Last Admin Trade Name Freq PRN Reason Stop Dose Admin Cephalexin HCl 500 mg 09/09/18 15:34 09/09/18 15:57 Keflex 500 Mg PO 09/09/18 15:35 500 mg STAT ONE Administration Cephalexin HCl Confirm 09/09/18 15:56 Keflex 500 Mg Administered 09/09/18 15:57 Dose 500 mg .ROUTE .STK-MED ONE Sodium Chloride 1,000 mls @ 999 mls/hr 09/09/18 13:01 09/09/18 14:35 Sodium Chloride 0.9% 1000 Ml IV 09/09/18 14:01 999 mls/hr .Q1H1M STA Administration Sodium Chloride Confirm 09/09/18 14:32 Sodium Chloride 0.9% 1000 Ml Administered 09/09/18 14:33 Dose 1,000 mls @ ud .ROUTE .STK-MED ONE Ketorolac Tromethamine 30 mg 09/09/18 13:01 09/09/18 14:29 Toradol 30 Mg Injection IV 09/09/18 13:02 Not Given STAT ONE Morphine Sulfate 4 mg 09/09/18 14:15 09/09/18 14:36 Morphine Sulfate 4 Mg Inj IM 09/09/18 14:16 4 mg STAT ONE Administration Morphine Sulfate Confirm 09/09/18 14:32 Morphine Sulfate 4 Mg Inj Administered 09/09/18 14:33 Dose 4 mg .ROUTE .STK-MED ONE Promethazine HCl 25 mg 09/09/18 14:15 09/09/18 14:36 Phenergan 25 Mg Inj IM 09/09/18 14:16 25 mg STAT ONE Administration Promethazine HCl Confirm 09/09/18 14:31 Phenergan 25 Mg Inj Administered 09/09/18 14:32 Dose 25 mg .ROUTE .STK-MED ONE Lab/Rad Data: Laboratory Result Diagrams 09/09/18 14:37 09/09/18 14:37 Laboratory Results 09/09/18 09/09/18 09/09/18 Range/Units 14:47 14:37 14:37 WBC 7.6 (4.0-10.5) K/mm3 RBC 5.40 (4.1-5.6) M/mm3 Hgb 16.1 (12.5-18.0) gm/dl Hct 46.9 (42-50) % MCV 86.9 (78-100) fl MCH 29.8 (26-32) pg MCHC 34.3 (32-36) g/dl RDW 13.1 (11.5-14.0) % Plt Count 273 (150-450) K/mm3 MPV 9.8 H (6-9.5) fl Gran % 62.0 (36.0-66.0) % Eos # (Auto) 0.55 H (0-0.5) Absolute Lymphs (auto) 1.50 (1.0-4.6) Absolute Monos (auto) 0.80 (0.0-1.3) Lymphocytes % 19.8 L (24.0-44.0) % Monocytes % 10.5 (0.0-12.0) % Eosinophils % 7.2 H (0.00-5.0) % Basophils % 0.5 (0.0-0.4) % Absolute Granulocytes 4.70 (1.4-6.9) Basophils # 0.04 (0-0.4) Sodium 140 (137-145) mmol/L Potassium 4.3 (3.5-5.1) mmol/L Chloride 107 (98-107) mmol/L Carbon Dioxide 26 (22-30) mmol/L Anion Gap 11.3 (5-15) MEQ/L BUN 13 (9-20) mg/dL Creatinine 0.98 (0.66-1.25) mg/dL Estimated GFR > 60.0 ML/MIN Glucose 82 (74-106) mg/dL Calcium 9.1 (8.4-10.2) mg/dL Total Bilirubin 0.90 (0.2-1.3) mg/dL AST 47 (17-59) U/L ALT 53 H (0-50) U/L Alkaline Phosphatase 174 H (38-126) U/L Serum Total Protein 7.8 (6.3-8.2) g/dL Albumin 4.3 (3.5-5.0) g/dL Amylase 95 (30-110) U/L Lipase 422 H (23-300) U/L Urine Color YELLOW (YELLOW) Urine Appearance CLEAR (CLEAR) Urine pH 6.0 (5-6) Ur Specific [place] 1.012 (1.005-1.025) Urine Protein NEGATIVE (Negative) Urine Ketones NEGATIVE (NEGATIVE) Urine Blood SMALL (0-5) Adal/ul Urine Nitrite NEGATIVE (NEGATIVE) Urine Bilirubin NEGATIVE (NEGATIVE) Urine Urobilinogen NEGATIVE (0-1) mg/dL Ur Leukocyte Esterase MODERATE (NEGATIVE) Urine WBC (Auto) 6-10 (0-5) /HPF Urine RBC (Auto) 3-5 (0-2) /HPF U Epithel Cells (Auto) NONE (FEW) /HPF Urine Bacteria (Auto) RARE (NEGATIVE) /HPF Urine Culture Reflexed YES (NO) Urine Glucose NEGATIVE (NEGATIVE) mg/dL - Progress Progress: improved Progress Note: 09/09/18 13:07 52-year-old white male with history of diabetes, aneurysm, high blood pressure, pancreatitis, depression, kidney stones. He arrives with complaint of left flank pain going on for 3 days she states he' s had a headache as well he states that although he has Atherosclerotic coronary artery disease and has had a CABG in the past. He is not taking aspirin nor is he taking any Plavix or any blood thinners he does take ibuprofen. Will go ahead and obtain CBC CMP amylase lipase UA order CT of the abdomen. 09/09/18 15:[address] of the abdomen remarkable for stable nonobstructing bilateral micro -calculi and small right renal cyst. There is incidental fecal stasis without obstruction there is also stable splenomegaly and thoracoabdominal aortic dissection table maximum diameter of the aorta again at 3.8 cm. Patient is feeling better after IV morphine, IM Phenergan, and IV normal saline. Patient did have 6-10 white cells per high-power field in his urine. Will discharge patient. Diagnoses left flank pain, urinary tract infection, history of aortic dissection. - Departure Time of Disposition: 15:37 Departure Disposition: Home Clinical Impression: Left flank pain, History of aortic dissection UTI (urinary tract infection) Qualifiers: Urinary tract infection type: site unspecified Hematuria presence: without hematuria Qualified Code(s): N39.0 - Urinary tract infection, site not specified Condition: Fair Critical Care Time: No Referrals: DOCTOR,NO FAMILY [Primary Care Provider] - Additional Instructions: Return home. Plenty of fluids. Keflex 500 mg orally every 6 hours 7 days. Walker as prescribed. Follow-up with your family doctor call for an appointment and arrange follow-up. Return for acute distress severe symptoms or for any problems. Prescriptions: Hydrocodone/APAP 5-325 Tab^^^ [Walker 5-325 Tablet^^^] 1 tab PO Q4HPRN PRN #10 tablet MDD 6 PRN Reason: Pain Cephalexin Mh 500 mg [Keflex 500 mg] 500 mg PO Q6H #28 capsule
--- NOTE | 2018-09-09 13:51 | XRAY ---
Indication: Left abdomen/flank pain. Multiple contiguous axial images obtained through the abdomen and pelvis without contrast using renal stone protocol. Comparison: December 29, 2016. Lung bases are clear. Heart is not enlarged. There are stable bilateral renal micro-calculi today without hydronephrosis or hydroureter. Stable small right upper pole exophytic cyst. Noncontrasted stomach and bowel loops appear nonobstructed. Normal appendix. Again mild diffuse scattered colonic fecal debris throughout including rectum. No free fluid/air. Spleen remains enlarged today measuring 13.8 cm in greatest axial dimension. Remaining liver, gallbladder, pancreas, spleen, adrenal glands, kidneys, ureters, and bladder appear unremarkable for noncontrast exam. Stable thoracoabdominal aorta and common iliac artery dissection. Stable maximum diameter of the aorta again 3.8 cm. Osseous structures intact. No ventral or inguinal hernias. Impression: 1. Stable nonobstructing bilateral renal micro-calculi and small right renal exophytic cyst. 2. Incidental fecal stasis without obstruction. 3. Stable splenomegaly and thoracoabdominal aortic dissection. CT DI 22.55
[2018-09-09] MEDS ORDERED: MORPHINE SULFATE 4 MG INJ IM ONE (14:15)
[2018-09-09] MEDS ORDERED: Phenergan 25 MG INJ IM ONE (14:15)
[2018-09-09] MEDS ORDERED: Phenergan 25 MG INJ ONE (14:31)
[2018-09-09] MEDS ORDERED: Sodium Chloride 0.9% 1000 ML 1,000 ML ONE (14:32)
[2018-09-09] MEDS ORDERED: MORPHINE SULFATE 4 MG INJ ONE (14:32)
[2018-09-09 14:39] LABS: BASOPHIL % 0.5 % (0.0-0.4); Basophil (Absolute #) 0.04 (0-0.4); Eosinophil % 7.2 % (0.00-5.0); Eosinophil (Absolute #) 0.55 (0-0.5); Hematocrit 46.9 % (42-50); Hemoglobin 16.1 gm/dl (12.5-18.0); Lymphocytes % 19.8 % (24.0-44.0); Mean Cell Volume 86.9 fl (78-100); Mean Corpuscular Hemoglobin 29.8 pg (26-32); Mean Corpuscular Hgb Concent. 34.3 g/dl (32-36); Mean Platelet Volume 9.8 fl (6-9.5); Monocytes % 10.5 % (0.0-12.0); Platelet Count 273 K/mm3 (150-450); Red Cell Distribution Width 13.1 % (11.5-14.0); White Blood Count 7.6 K/mm3 (4.0-10.5)
[2018-09-09 14:58] LABS: ALBUMIN 4.3 g/dL (3.5-5.0); ALKALINE PHOSPHATASE 174 U/L (38-126); AMYLASE 95 U/L (30-110); ANION GAP 11.3 MEQ/L (5-15); BLOOD UREA NITROGEN 13 mg/dL (9-20); CHLORIDE 107 mmol/L (98-107); Calcium 9.1 mg/dL (8.4-10.2); Carbon Dioxide 26 mmol/L (22-30); Creatinine 1 0.98 mg/dL (0.66-1.25); Glucose 82 mg/dL (74-106); LIPASE 422 U/L (23-300); Potassium 4.3 mmol/L (3.5-5.1); SGOT/AST 47 U/L (17-59); SGPT/ALT 53 U/L (0-50); SODIUM 140 mmol/L (137-145); Total Protein 7.8 g/dL (6.3-8.2)
[2018-09-09 15:24] LABS: Appearance CLEAR (CLEAR); Glucose NEGATIVE (NEGATIVE); Leukocyte Esterase MODERATE (NEGATIVE); Nitrite NEGATIVE (NEGATIVE); Protein,Urine Dip NEGATIVE (Negative); Specific Gravity 1.012 (1.005-1.025)
[2018-09-09 15:25] LABS: Bacteria RARE /HPF (NEGATIVE); Bilirubin NEGATIVE (NEGATIVE); Blood SMALL Ery/ul (0-5); Ketones NEGATIVE (NEGATIVE); Urobilinogen NEGATIVE mg/dL (0-1)
[2018-09-09] MEDS ORDERED: KEFLEX 500 MG PO ONE (15:34)
[2018-09-09] MEDS ORDERED: KEFLEX 500 MG ONE (15:56)
[2018-09-09 16:17] VITALS: BP 179/105; PULSE 80; O2SAT 95
== END 2018-09-09 16:22 | disposition home or self-care (01) ==
LOC: ED 11:52
DX: R10.9 Unspecified abdominal pain (principal); N39.0 Urinary tract infection, site not specified; E11.9 Type 2 diabetes mellitus without complications; I71.00 Dissection of unspecified site of aorta; Z87.442 Personal history of urinary calculi; I25.810 Atherosclerosis of coronary artery bypass graft(s) without angina pectoris; Z72.0 Tobacco use; I10 Essential (primary) hypertension; R51 Headache; Z79.899 Other long term (current) drug therapy
CPT/HCPCS: 36000; 36415; 74176; 80053; 81001; 82150; 83690; 85025; 87086; 96360; 96372; 96374; 99284; J2270; J2550; A9270-GY

== ENCOUNTER 2023-10-23 12:42 | Emergency (ER) | payer OTHER ==
[2023-10-23 12:57] VITALS: TEMP 95.7; O2SAT 95
[2023-10-23] MEDS ORDERED: Fluor-I-Strip/Ful-Flo OP ONE (13:03)
[2023-10-23] MEDS ORDERED: TETRACAINE 0.5% STERI-UNIT SOL OP ONE (13:03)
[2023-10-23] MEDS ORDERED: Erythromycin 1 GM ONE (14:21)
[2023-10-23] MEDS: Erythromycin 1 GM OP STA (14:22)
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
[2023-10-23 14:24] VITALS: BP 126/75; PULSE 61; RESP 20
[2023-10-23] MEDS: Fluor-I-Strip/Ful-Flo OP ONE (15:00)
[2023-10-24] MEDS: TETRACAINE 0.5% STERI-UNIT SOL OP STA (10:45)
== END 2023-10-23 14:47 | disposition home or self-care (01) ==
LOC: ED 12:42
DX: T15.92XA Foreign body on external eye, part unspecified, left eye, initial encounter (principal); E11.9 Type 2 diabetes mellitus without complications; Z79.899 Other long term (current) drug therapy
CPT/HCPCS: 82947; 99281; A9270-GY